=== PATIENT | female | born 1960 | race Caucasian/White ===

== ENCOUNTER → 2020-06-13 13:40 | Outpatient (BNV) | payer MEDICARE, MEDICAID, SELFPAY | PROVIDERS: PCP Family Medicine; Visit Provider Internal Medicine Medical Oncology | DX: C50.912 Malignant neoplasm of unspecified site of left female breast (principal); C50.911 Malignant neoplasm of unspecified site of right female breast; Z79.811 Long term (current) use of aromatase inhibitors; M81.0 Age-related osteoporosis without current pathological fracture; D64.9 Anemia, unspecified | CPT/HCPCS: 99213; 99214 ==

== ENCOUNTER 2020-12-01 08:26 | Day surgery (SDC) | payer MEDICAID, SELFPAY ==
[2020-11-27 10:02] VITALS: BMI 29.2
--- NOTE | 2020-11-29 15:05 | HO.ANESPROP2 ---
Documented by User: Carla Ramsay 11/30/20 12:20 HPI - Anesthesia Eval Consult details Narrative: 60yo F for Colonoscopy PMFSH Active Problems Active Problems: All Active Problems (Updated 06/13/20 @ 13:24 by Melody Pham MD) Bilateral breast cancer (Acute) Past Medical History Medical History Allergic rhinitis Anxiety and depression GERD (gastroesophageal reflux disease) HLD (hyperlipidemia) HTN (hypertension) Hx of radiation therapy Invasive carcinoma of breast Surgical History Surgical History Hx of lumpectomy Social History Social History Alcohol intake: former Meds Allergies Allergy/AdvReac Type Severity Reaction Status Date / Time chlorthalidone Allergy Unknown UNKNOWN Unverified 01/27/20 15:16 [CHLORTHALIDONE] omeprazole [From Prilosec] Allergy Unknown TONGUE Unverified 01/27/20 15:16 NUMBNESS Home Medications Medication Instructions Recorded Confirmed Last Taken Type albuterol sulfate [ProAir HFA] 2 puff INHALATION Q4-6H PRN 06/13/20 06/13/20 Unknown History alendronate 5 mg PO DAILY 06/13/20 06/13/20 Unknown History clonazepam 1 mg PO BID 06/13/20 06/13/20 Unknown History latanoprost 1 drp OPHTHALMIC (EYE) DAILY 06/13/20 06/13/20 Unknown History lisinopril 10 mg PO DAILY 06/13/20 06/13/20 Unknown History loratadine 10 mg PO DAILY 06/13/20 06/13/20 Unknown History montelukast 10 mg PO BEDTIME 06/13/20 06/13/20 Unknown History ranitidine HCl 150 mg PO DAILY 06/13/20 06/13/20 Unknown History sertraline 100 mg PO DAILY 06/13/20 06/13/20 Unknown History simvastatin 10 mg PO BEDTIME 06/13/20 06/13/20 Unknown History trazodone 50 mg PO BEDTIME PRN 06/13/20 06/13/20 Unknown History Exam Exam Date and Time: November 29, 2020 1505 Height,Weight and Vital Signs: Height 5 ft Weight 68.039 kg Assessment and Plan Assessment Anesthesia Assessment: Chart Reviewed Documented by User: Shannon Medina 12/01/20 07:41 PMFSH Past Medical History Medical History Allergic rhinitis Anxiety and depression GERD (gastroesophageal reflux disease) HLD (hyperlipidemia) HTN (hypertension) Hx of radiation therapy Invasive carcinoma of breast Surgical History Surgical History Hx of lumpectomy Social History Social History Alcohol intake: former Meds Allergies Allergy/AdvReac Type Severity Reaction Status Date / Time chlorthalidone Allergy Unknown UNKNOWN Unverified 01/27/20 15:16 [CHLORTHALIDONE] omeprazole [From Prilosec] Allergy Unknown TONGUE Unverified 01/27/20 15:16 NUMBNESS Home Medications Medication Instructions Recorded Confirmed Last Taken Type albuterol sulfate [ProAir HFA] 2 puff INHALATION Q4-6H PRN 06/13/20 06/13/20 Unknown History alendronate 5 mg PO DAILY 06/13/20 06/13/20 Unknown History clonazepam 1 mg PO BID 06/13/20 06/13/20 Unknown History latanoprost 1 drp OPHTHALMIC (EYE) DAILY 06/13/20 06/13/20 Unknown History lisinopril 10 mg PO DAILY 06/13/20 06/13/20 Unknown History loratadine 10 mg PO DAILY 06/13/20 06/13/20 Unknown History montelukast 10 mg PO BEDTIME 06/13/20 06/13/20 Unknown History ranitidine HCl 150 mg PO DAILY 06/13/20 06/13/20 Unknown History sertraline 100 mg PO DAILY 06/13/20 06/13/20 Unknown History simvastatin 10 mg PO BEDTIME 06/13/20 06/13/20 Unknown History trazodone 50 mg PO BEDTIME PRN 06/13/20 06/13/20 Unknown History
[2020-12-01 08:46] VITALS: BP 149/55; PULSE 94; RESP 18; TEMP 36.3; O2SAT 99
[2020-12-01] MEDS: Lactated Ringers 1,000 ML 100 ML IVCONT (08:54)
--- NOTE | 2020-12-01 09:34 | P.BOP_ITS ---
Brief Operative Note Date of Service: 12/01/20 Pre-op diagnosis: screening Post-op diagnosis: same (colon polyp) Procedure: colonoscopy Surgeon: Bay Sampson Anesthesia: MAC Was an Summer Internship used for this Procedure?: No Estimated blood loss (mL): 2 Pathology: other (polyp x1) Condition: stable Disposition: PACU
--- NOTE | 2020-12-01 09:34 | MHC.SHP ---
Pre-Procedural Eval Section A Date of Service: 12/01/20 The patient is an INPATIENT: No Changes since office visit: No Cold of Flu in the past 2 weeks, No New Medical Problems, No Changes in Medication and No Patient answered all questions The History & Physical has been completed within 30 days and I have reviewed it.: Yes Section B Chief Complaint: Screening Allergies: Allergies Allergy/AdvReac Type Severity Reaction Status Date / Time chlorthalidone Allergy Unknown UNKNOWN Verified 12/01/20 08:41 [CHLORTHALIDONE] omeprazole [From Prilosec] Allergy Unknown TONGUE Verified 12/01/20 08:41 NUMBNESS Plan I have reviewed the history and physical and performed a pertinent physical examination on my patient. No changes have occurred unless specified.
[2020-12-01 10:05] VITALS: BP 103/52; PULSE 75; RESP 12; TEMP 37.3; O2SAT 99
[2020-12-01 10:19] VITALS: BP 96/70; PULSE 87; RESP 18; O2SAT 99
[2020-12-01 10:36] VITALS: BP 130/64; PULSE 75; RESP 16; TEMP 37.3; O2SAT 99
--- NOTE | 2020-12-01 11:20 | HO.POSTANES ---
Post Anesthesia Evaluation Post Anesthesia Evaluation Vital Signs: Vital Signs Temp Pulse Resp BP Pulse Ox 12/01/20 10:36 99.2 F 75 16 130/64 99 12/01/20 10:19 87 18 96/70 99 12/01/20 10:05 99.2 F 75 12 103/52 L 99 12/01/20 08:46 97.4 F 94 18 149/55 H 99 Anesthesia: Monitored Mental Status: Awake Pain Control: Satisfactory Nausea/Vomiting: None Hydration: Adequate Anesthesia-Related Issues: No Anes. Related Issues
--- NOTE | 2020-12-01 20:47 | OP_ITS ---
SURGEON: Bay Sampson MD INDICATIONS: Colon cancer screening. PREOPERATIVE DIAGNOSIS: POSTOPERATIVE DIAGNOSIS: PROCEDURE PERFORMED: Colonoscopy to the terminal ileum with biopsy. ESTIMATED BLOOD LOSS: COMPLICATIONS: ANESTHESIA: Monitored anesthesia care. ASSISTANTS: SPECIMENS: DESCRIPTION OF PROCEDURE: History and physical performed. The risks and benefits of the procedure were explained to the patient. Informed consent was obtained. The patient was placed in the left lateral decubitus position. A digital rectal exam was performed and was found to be normal. An Olympus pediatric video colonoscope was introduced into the rectum and advanced to the cecum without difficulty. The cecum was identified by transillumination, palpation, and identification of ileocecal valve. Examination was performed. The scope was removed. She tolerated the procedure well and was taken to recovery area in stable condition. FINDINGS: The terminal ileum was examined and appeared normal. The visualized colonic mucosa was within normal limits without evidence of masses or ulcers. A single polyp measuring less than 5 mm was identified and removed with biopsy forceps at approximately 70 cm. No other polyps were identified. The quality of the prep was good. There was mild sigmoid diverticulosis. Retroflexed examination showed small internal hemorrhoids. IMPRESSION: Colon polyp. RECOMMENDATIONS: Follow up the biopsy results. MD KP Niño/MELCHOR / [id number]
== END 2020-12-01 11:05 | disposition home or self-care (01) ==
PROVIDERS: PCP Family Medicine; Visit Provider Internal Medicine Gastroenterology
PROC: 0DJD8ZZ Inspection of Lower Intestinal Tract, Via Natural or Artificial Opening Endoscopic (ICD-10-PCS; CPT 45378; principal; 2020-12-01 09:40)
DX: Z12.11 Encounter for screening for malignant neoplasm of colon (principal); K63.5 Polyp of colon; K57.30 Diverticulosis of large intestine without perforation or abscess without bleeding; K64.8 Other hemorrhoids; K21.9 Gastro-esophageal reflux disease without esophagitis; C50.919 Malignant neoplasm of unspecified site of unspecified female breast; Z79.811 Long term (current) use of aromatase inhibitors; I10 Essential (primary) hypertension; Z92.3 Personal history of irradiation; Z79.899 Other long term (current) drug therapy; Z88.8 Allergy status to other drugs, medicaments and biological substances
CPT/HCPCS: 45380; 88305

== ENCOUNTER 2021-03-06 14:45 | Outpatient (REF) | payer MEDICAID, SELFPAY ==
--- NOTE | ~2021-03-06 | MM_ITS ---
EXAMINATION: MM SCREENING DIGITAL BREAST TOMOSYNTHESIS, RIGHT CLINICAL INFORMATION: Screening. Asymptomatic. Status post left mastectomy. 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 COMPARISON: Mammography: January 27, 2020 and studies dating back to August 08, 2011 TECHNIQUE: Digital breast tomosynthesis is performed in both the craniocaudal and mediolateral oblique views along with computer-aided detection (CAD). Synthesized 2D images are generated from the tomosynthesis. Exaggerated right craniocaudal view also performed. FINDINGS: The breasts are heterogeneously dense, which may obscure small masses (ACR BI-RADS breast composition Category c). There is a stable postoperative in postradiation appearance to the right breast with no new abnormal dominant mass or suspicious grouping of microcalcifications. MM/MM tomosynthesis screening BI IMPRESSION: There are no significant changes from prior study. ASSESSMENT: BI-RADS 2: Benign RECOMMENDATION: Routine annual mammography screening. This patient's information was entered into a reminder system with a target due date for their next mammogram.
== END 2021-03-06 14:46 | disposition home or self-care (01) ==
LOC: HO.MAMMO 14:45
PROVIDERS: Visit Provider Family Medicine
DX: Z12.31 Encounter for screening mammogram for malignant neoplasm of breast (principal)
CPT/HCPCS: 77063; 77067

== ENCOUNTER 2021-05-17 13:10 | Outpatient (REF) | payer MEDICAID, SELFPAY ==
[2021-05-22 16:01] LABS: HPV mRNA E6/E7 rflx Not Detected (Not Detected)
== END 2021-05-17 13:11 | disposition home or self-care (01) ==
LOC: HO.LAB 13:10
PROVIDERS: PCP Family Medicine; Visit Provider Obstetrics & Gynecology
DX: N95.0 Postmenopausal bleeding (principal); N95.2 Postmenopausal atrophic vaginitis
CPT/HCPCS: 87624; 88142; 99212

== ENCOUNTER 2021-06-12 12:45 | Outpatient (REF) | payer MEDICAID, SELFPAY ==
--- NOTE | ~2021-06-12 | XR_ITS ---
EXAMINATION: XR CHEST CLINICAL INFORMATION: Left lung congestion and pain. History of breast cancer. COMPARISON: Previous chest x-ray June 2018 TECHNIQUE: 2 views of the chest were obtained. FINDINGS: The cardiac and mediastinal contours are normal. The lungs are clear. There is no pleural effusion or pneumothorax. The left breast has been removed. There are surgical clips in both axilla. There are degenerative changes of the spine. XR/XR chest 2V IMPRESSION: No evidence for acute disease in the chest.
== END 2021-06-12 12:46 | disposition home or self-care (01) ==
LOC: HO.XRAY 12:45
PROVIDERS: PCP Family Medicine; Visit Provider Family Medicine
DX: C50.912 Malignant neoplasm of unspecified site of left female breast (principal); R09.89 Other specified symptoms and signs involving the circulatory and respiratory systems
CPT/HCPCS: 71046

== ENCOUNTER 2021-07-09 13:46 | Outpatient (REF) | payer MEDICAID, SELFPAY ==
--- NOTE | ~2021-07-09 | US_ITS ---
EXAMINATION: US PELVIC AND TRANSVAGINAL CLINICAL INFORMATION: Postmenopausal bleeding. COMPARISON: Ultrasound 10/29/2018 and 11/05/2016. TECHNIQUE: Ultrasound of the pelvis is performed using both transabdominal and transvaginal transducers along with Doppler. Transvaginal imaging is performed due to inadequate visualization transabdominally. FINDINGS: UTERUS: The uterus is anteverted, and measures 8.8 x 3.5 x 6.9 cm. The double wall endometrial thickness is 0.2-0.5 cm. There are echogenic calcifications in the myometrium likely vascular. Previously visualized polyp is not seen at this time likely from previous biopsy. The uterus is smooth in contour and has normal myometrial echogenicity. No visible fibroid. There are small nabothian cysts seen in the cervix. ADNEXA: Both ovaries are not visualized. There is normal color flow to the adnexa. There is no ovarian torsion. There is no pelvic ascites or fluid collection. Right ovary previously measured 0.8 x 1.0 x 1.4 and volume 0.6 mL. Left ovary previously measured 1.3 x 1.1 x 1.8 cm and volume 1.3 mL. There is no free fluid in the cul-de-sac. US/US pelvic and transvaginal IMPRESSION: 1. Nabothian cysts in the cervix. 2. Echogenic vascular calcification in the myometrium. Endometrial polyp is not seen at this time likely secondary to biopsy. 3. Both ovaries are not seen.
== END 2021-07-09 13:47 | disposition home or self-care (01) ==
LOC: HO.US 13:46
PROVIDERS: PCP Family Medicine; Visit Provider Obstetrics & Gynecology
DX: N95.0 Postmenopausal bleeding (principal)
CPT/HCPCS: 76830; 76856

== ENCOUNTER 2021-07-23 13:51 | Outpatient (REF) | payer MEDICAID, SELFPAY | END 2021-07-23 13:52 | disposition home or self-care (01) | LOC: HO.LAB 13:51 | PROVIDERS: PCP Family Medicine; Visit Provider Obstetrics & Gynecology | DX: N95.0 Postmenopausal bleeding (principal); N95.2 Postmenopausal atrophic vaginitis | CPT/HCPCS: 58100; 88305; 99212 ==

== ENCOUNTER → 2021-08-06 12:28 | Outpatient (BNVA) | payer MEDICAID, SELFPAY | PROVIDERS: PCP Family Medicine; Visit Provider Obstetrics & Gynecology | DX: Z13.89 Encounter for screening for other disorder (principal) ==

== ENCOUNTER 2022-03-07 14:37 | Outpatient (REF) | payer MEDICAID, SELFPAY ==
--- NOTE | ~2022-03-07 | MM_ITS ---
EXAMINATION: MM SCREENING DIGITAL BREAST TOMOSYNTHESIS, RIGHT CLINICAL INFORMATION: Screening. Asymptomatic. Status post left mastectomy. Status post right lumpectomy. COMPARISON: Mammography: March 06, 2021 and studies dating back to September 04, 2015 TECHNIQUE: Digital breast tomosynthesis is performed in both the craniocaudal and mediolateral oblique views along with computer-aided detection (CAD). Synthesized 2D images are generated from the tomosynthesis. FINDINGS: The breasts are heterogeneously dense, which may obscure small masses (ACR BI-RADS breast composition Category c). There are no new significant masses, abnormal calcifications, or other abnormalities. Regions of architectural distortion from previous surgery seen upper outer aspect of the right breast. MM/MM tomosynthesis screening RT IMPRESSION: No significant changes from prior exam. ASSESSMENT: BI-RADS 2: Benign RECOMMENDATION: Routine annual mammography screening. This patient's information was entered into a reminder system with a target due date for their next mammogram.
== END 2022-03-07 14:38 | disposition home or self-care (01) ==
LOC: HO.MAMMO 14:37
PROVIDERS: PCP Family Medicine; Visit Provider Family Medicine
DX: Z12.31 Encounter for screening mammogram for malignant neoplasm of breast (principal)
CPT/HCPCS: 77063; 77067

== ENCOUNTER 2022-11-14 08:31 | Outpatient (REF) | payer MEDICAID, SELFPAY | END 2022-11-14 08:32 | disposition home or self-care (01) | LOC: HO.NEURO 08:31 | PROVIDERS: PCP Family Medicine; Visit Provider Family Medicine | DX: G25.81 Restless legs syndrome (principal) | CPT/HCPCS: 95886; 95909 ==

== ENCOUNTER 2023-03-11 13:44 | Outpatient (REF) | payer MEDICARE, MEDICAID, SELFPAY ==
--- NOTE | ~2023-03-11 | MM_ITS ---
EXAMINATION: MM SCREENING DIGITAL BREAST TOMOSYNTHESIS, BILATERAL CLINICAL INFORMATION: Screening. Asymptomatic. Status post left mastectomy and right lumpectomy for breast cancer. COMPARISON: Mammography: This study is compared with prior exams dating back to 2018. TECHNIQUE: Digital breast tomosynthesis is performed in both the craniocaudal and mediolateral oblique views along with computer-aided detection (CAD). Synthesized 2D images are generated from the tomosynthesis. FINDINGS: There are scattered areas of fibroglandular density (ACR BI-RADS breast composition Category b). There are no significant masses, abnormal calcifications, or other abnormalities. There are biopsy tissue markers in the upper outer quadrant of the right breast, medial aspect of the right breast and in the right axilla. There are 2 adjacent areas of architectural change from prior surgery in the upper outer quadrant of the right breast. There is inferiorly located, mildly, unchanged skin thickening from prior treatment. MM/MM tomosynthesis screening RT IMPRESSION: No mammographic evidence of malignancy. ASSESSMENT: BI-RADS BI-RADS 2 - Benign Findings RECOMMENDATION: Routine annual mammography screening. 1 year F/U This examination should not preclude the clinical evaluation of a suspicious palpable abnormality. This patient's information was entered into a reminder system with a target due date for their next mammogram.
--- NOTE | ~2023-03-11 | MM_ITS ---
EXAMINATION: BONE DENSITOMETRY CLINICAL INDICATION: Other specified disorders of bone density and structure, multiple sites. COMPARISON: Previous BD dated 01/27/2020 and baseline BD dated 01/18/2008. TECHNIQUE: Using a [employer]ji DXA System (software version: 13.1) manufactured by [employer], dual-energy x-ray absorptiometry was performed of the lumbar spine and left hip. The images are of good technical quality. Summary results are attached. FINDINGS: LEFT FEMUR, NECK: Current: BMD 0.741 g/cm2, Z-score -0.7, T-score -2.1, osteopenia. Prior: BMD 0.798 g/cm2. Baseline: BMD 0.902 g/cm2. LEFT FEMUR, TOTAL: Current: BMD 0.743 g/cm2, Z-score -1.0, T-score -2.1, osteopenia, 5.1% decrease from previous, 17.1% decrease from baseline (<5% change is not significant). Prior: BMD 0.783 g/cm2. Baseline: BMD 0.896 g/cm2. AP SPINE L1-L4: Current: BMD 0.877 g/cm2, Z-score -1.0, T-score -2.5, osteoporosis, 0.8% decrease from previous, 19.1% decrease from baseline (<5% change is not significant). Prior: BMD 0.884 g/cm2. Baseline: BMD 1.084 g/cm2. IDENTIFIED RISK FACTORS: Menopause. HISTORY OF FRACTURE: None listed. MEDICATIONS: Bisphosphonate. MM/XR DEXA axial skeleton IMPRESSION: 1. DIAGNOSIS: Osteoporosis based on the lowest T-score value of -2.5 in the lumbar spine applying World Health Organization criteria. 2. 10-YEAR FRACTURE RISK PREDICTION, FRAX: According to the guidelines, FRAX calculation should only be performed on patients in the osteopenia bone density category. Therefore, FRAX was not performed on this patient. 3. Treatment Recommendations: NOF guidelines recommend consideration for treatment in postmenopausal women and men age 50 and older presenting with the following: -A hip or vertebral (clinical or morphometric) fracture. -T-score less than or equal to -2.5 at the femoral neck or spine after appropriate evaluation to exclude secondary causes. -Low bone mass at the hip or spine and a 10-year fracture probability by FRAX of greater than or equal to 3% for hip fracture or greater than or equal to 20% for major osteoporotic fracture based on the [place] adapted WHO algorithm. 4. Other Recommendations: All treatment decisions require clinical judgment and consideration of individual patient factors, including patient preferences, comorbidities, previous drug use, risk factors not captured in the FRAX model (e.g. frailty, falls, vitamin D deficiency, increased bone turnover, interval significant decline in bone density) and possible under or overestimation of fracture risk by FRAX. Additional medical evaluation for secondary cause of low bone mineral density may be appropriate. FUTURE SCAN RECOMMENDATION: People with diagnosed cases of osteoporosis or at high risk for fracture should have regular bone mineral density tests. For patients eligible for Medicare, routine testing is allowed once every 2 years. The testing frequency can be increased to one year for patients who have rapidly progressing disease, those who are receiving or discontinuing medical therapy to restore bone mass, or have additional risk factors.
== END 2023-03-11 13:45 | disposition home or self-care (01) ==
LOC: HO.MAMMO 13:44
PROVIDERS: PCP Family Medicine; Visit Provider Family Medicine
DX: Z12.31 Encounter for screening mammogram for malignant neoplasm of breast (principal); Z13.820 Encounter for screening for osteoporosis; M85.89 Other specified disorders of bone density and structure, multiple sites; Z78.0 Asymptomatic menopausal state
CPT/HCPCS: 77063; 77067; 77080

== ENCOUNTER → 2023-03-11 14:30 | Outpatient (BNV) | payer MEDICARE, MEDICAID, SELFPAY | PROVIDERS: PCP Family Medicine; Visit Provider Radiology Diagnostic Radiology | DX: Z12.31 Encounter for screening mammogram for malignant neoplasm of breast (principal) | CPT/HCPCS: 77063; 77067 ==

== ENCOUNTER 2023-05-06 12:46 | Outpatient (REF) | payer MEDICARE, MEDICAID, SELFPAY ==
[2023-05-06 16:42] LABS: Alanine Aminotransferase 9 U/L (0-31); Albumin Level 4.2 g/dL (3.5-5.0); Alkaline Phosphatase 73 U/L (39-117); Anion Gap 13 (12-20); Aspartate Amino Transferase 19 U/L (5-31); Bilirubin Total 0.5 mg/dL (0.0-1.0); Blood Urea Nitrogen 15 mg/dL (9-16); Calcium 9.7 mg/dL (8.4-10.2); Carbon Dioxide 24 mmol/L (22-29); Chloride 107 mmol/L (96-108); Estimated Glomerular Filt Rate > 60; Glucose Random 92 mg/dL (60-115); Potassium 4.4 mmol/L (3.3-5.1); Sodium 140 mmol/L (135-145); Total Protein 8.2 g/dL (6.5-8.0)
[2023-05-06 16:43] LABS: Cholesterol 198 mg/dL (<200); HDL Cholesterol 51 mg/dL (>40); LDL Cholesterol Calculated 116 mg/dL (<100); Triglycerides 157 mg/dL (<150)
[2023-05-06 16:45] LABS: Estimated Average Glucose 117 mg/dL; Hemoglobin A1c % 5.7 % (<6.0)
[2023-05-06 17:35] LABS: Reflex LDLD? No
== END 2023-05-06 12:47 | disposition home or self-care (01) ==
LOC: HO.HHCL 12:46
PROVIDERS: Visit Provider Family Medicine
DX: E78.5 Hyperlipidemia, unspecified (principal); I10 Essential (primary) hypertension; R73.01 Impaired fasting glucose
CPT/HCPCS: 36415; 80053; 80061; 83036

== ENCOUNTER 2023-12-09 18:04 | Outpatient (REF) | payer MEDICARE, MEDICAID, SELFPAY ==
[2023-12-10 05:54] LABS: CT PCR NOT DETECTED (Not Detect.); NG PCR NOT DETECTED (Not Detect.)
[2023-12-10 08:53] LABS: Bacterial Vaginosis PCR NEGATIVE (Negative); Candida Group PCR NOT DETECTED (Not Detect); Candida glab krusei PCR NOT DETECTED (Not Detect); Trichomonas vaginalis PCR NOT DETECTED (Not Detect)
== END 2023-12-09 18:05 | disposition home or self-care (01) ==
LOC: HO.HHCLNP 18:04
PROVIDERS: Visit Provider Nurse Practitioner Family
DX: R39.9 Unspecified symptoms and signs involving the genitourinary system (principal); Z11.3 Encounter for screening for infections with a predominantly sexual mode of transmission
CPT/HCPCS: 0352U; 87491; 87591

== ENCOUNTER 2024-04-21 14:03 | Outpatient (AMB) | payer MEDICARE, MEDICAID, SELFPAY ==
--- NOTE | 2024-04-21 14:07 | A.OFFVIS_ITS ---
Vital Signs 04/21/24 14:12 Height 5 ft 0.35 in Weight 157 lb 6.561 oz BMI 30.4 BP 138/70 Blood Pressure Location Rt brachial Position Sitting Pulse 103 H Pulse Source Pulse Oximeter Intake Visit Reasons: Osteoporosis Intake Note: New patient present for Osteoporosis, externally referred by PCP. Territory Supervisor Required: Yes Territory Supervisor Services: Territory Supervisor Present Territory Supervisor Name: Ney Information Interpreted: non-clinical & clinical Accompanied by: Self / Same As Patient Allergies chlorthalidone [CHLORTHALIDONE] Allergy (Unknown, Verified 04/21/24 14:13) UNKNOWN omeprazole [From Prilosec] Allergy (Unknown, Verified 04/21/24 14:13) TONGUE NUMBNESS HPI Comments Details: 64 YO Female is seen in consultation at the request of PCP for Osteoporosis. First diagnosed in many yrs ago .Never saw specialist before Received treatment in the past with alendronate , from 2018 to 2023 . Tolerated treatment well without complication. Currently on alendronate No history of pathologic fracture or ONJ. Has several servings of dietary calcium per day . Not Takes Calcium supplement mg daily in divided doses. Takes ?1200 IU of Vitamin D daily. Denies ever using PPI, anticoagulant, antiepileptic or glucocorticoid medication. 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 UTD on dental cleanings and sees dentist every 6 months. No planned upcoming dental work or extractions. DXA dated 03/11/23:FINDINGS: LEFT FEMUR, NECK: Current: BMD 0.741 g/cm2, Z-score -0.7, T-score -2.1, osteopenia. Prior: BMD 0.798 g/cm2. Baseline: BMD 0.902 g/cm2. LEFT FEMUR, TOTAL: Current: BMD 0.743 g/cm2, Z-score -1.0, T-score -2.1, osteopenia, 5.1% decrease from previous, 17.1% decrease from baseline (<5% change is not significant). Prior: BMD 0.783 g/cm2. Baseline: BMD 0.896 g/cm2. AP SPINE L1-L4: Current: BMD 0.877 g/cm2, Z-score -1.0, T-score -2.5, osteoporosis, 0.8% decrease from previous, 19.1% decrease from baseline (<5% change is not significant). Prior: BMD 0.884 g/cm2. Baseline: BMD 1.084 g/cm2. IDENTIFIED RISK FACTORS: Menopause. HISTORY OF FRACTURE: None listed. MEDICATIONS: Bisphosphonate. MM/XR DEXA axial skeleton IMPRESSION: 1. DIAGNOSIS: Osteoporosis based on the lowest T-score value of -2.5 in the lumbar spine applying World Health Organization criteria. Labs: [facility] Medical History Vertigo Allergic rhinitis HLD (hyperlipidemia) GERD (gastroesophageal reflux disease) HTN (hypertension) Anxiety and depression Hx of radiation therapy Invasive carcinoma of breast Surgical History History of cataract surgery Hx of lumpectomy Family History Other No family history of cancer Social History Household Members: Spouse Housing: House Are you a primary healthcare insurance sales agent to a significant other at home: No Do you presently have visiting nurse or other home services: No Alcohol intake: former Patient Tobacco Use Status: Never used Tobacco Second Hand Smoke Exposure: No service: No Current occupational status: disabled Female Reproductive History Menstrual Age of Menarche: 8 Physical Exam Vital Signs: Last Vital Signs Pulse 103 H 04/21/24 14:12 BP 138/70 04/21/24 14:12 BMI result Body Mass Index 30.4 There are no Cushingoid features. Absence of blue sclera. Absence of kyphosis. Thyroid gland is of nl size and weighs 15 gms. There are no thyroid nodules palpated. Lungs CTA. Heart S1 S2 Reg R/R Abdominal exam benign. Muscle strength 5/5 . Examination of spine reveals absence of tenderness on palpation Assessment & Plan Assessment & Plan (1) Osteoporosis: Code(s): M81.0 - Age-related osteoporosis without current pathological fracture Category: Medical Plan: This is a 64-year-old female with a history of osteoporosis with partial secondary workup. She completed 5 years of bisphosphonate therapy with bone density showing borderline osteoporosis Plan is to complete the secondary workup by checking TSH, free T4, 25 hydroxy vitamin-D, SPEP, urine immunofixation and 24 hour urine for calcium and creatinine. Will ensure 1200 mg of calcium and vitamin-D supplementation. We will also check urine NTX. Assuming urine NTX is suppressed, would consider giving a drug holiday by holding the alendronate and following bone turnover markers. Orders: Orders Free T4 (Free Thyroxine) Today M81.0 - Age-related osteoporosis without current pathological fracture Calcium, 24 Hr Ur Today M81.0 - Age-related osteoporosis without current pathological fracture Creatinine, 24 Hr Group Today M81.0 - Age-related osteoporosis without current pathological fracture Collagen Crosslinks NTX Today M81.0 - Age-related osteoporosis without current pathological fracture Vitamin D 25-OH Total Today M81.0 - Age-related osteoporosis without current pathological fracture Thyroid Stimulating Hormone Today M81.0 - Age-related osteoporosis without current pathological fracture Protein Electrophoresis, Serum Today M81.0 - Age-related osteoporosis without current pathological fracture Immunofixation, Random Urine Today M81.0 - Age-related osteoporosis without current pathological fracture Coding Level of Care Code New Pt Level 4 (16663) Diagnoses Osteoporosis M81.0
[2024-04-21 14:12] VITALS: BP 138/70; PULSE 103; BMI 30.4
== END 2024-04-21 14:39 | disposition home or self-care (01) ==
PROVIDERS: PCP Family Medicine; Visit Provider Internal Medicine Endocrinology, Diabetes & Metabolism
DX: M81.0 Age-related osteoporosis without current pathological fracture (principal)
CPT/HCPCS: 99204

== ENCOUNTER → 2024-04-21 14:03 | Outpatient (BNVA) | payer MEDICARE, MEDICAID, SELFPAY | PROVIDERS: PCP Family Medicine; Visit Provider Internal Medicine Endocrinology, Diabetes & Metabolism | DX: M81.0 Age-related osteoporosis without current pathological fracture (principal) | CPT/HCPCS: 99202 ==

== ENCOUNTER 2024-05-25 13:50 | Outpatient (REF) | payer MEDICARE, MEDICAID, SELFPAY | END 2024-05-25 13:51 | disposition home or self-care (01) | LOC: HO.MAMMO 13:50 | PROVIDERS: PCP Family Medicine; Visit Provider Family Medicine | DX: Z12.31 Encounter for screening mammogram for malignant neoplasm of breast (principal) | CPT/HCPCS: 77063; 77067 ==

== ENCOUNTER → 2024-05-25 14:00 | Outpatient (BNV) | payer MEDICARE, MEDICAID, SELFPAY | PROVIDERS: PCP Family Medicine; Visit Provider Internal Medicine | DX: Z12.31 Encounter for screening mammogram for malignant neoplasm of breast (principal) | CPT/HCPCS: 77063; 77067 ==

== ENCOUNTER 2024-07-28 13:38 | Outpatient (REF) | payer MEDICARE, SELFPAY ==
[2024-07-28 14:43] LABS: Estimated Average Glucose 120 mg/dL; Hemoglobin A1c % 5.8 % (<6.0)
[2024-07-28 15:28] LABS: Creatinine, mg/dL 53.84
[2024-07-28 17:30] LABS: Alanine Aminotransferase 15 U/L (0-31); Albumin Level 4.4 g/dL (3.5-5.0); Alkaline Phosphatase 60 U/L (39-117); Anion Gap 11 (12-20); Aspartate Amino Transferase 17 U/L (5-31); Bilirubin Total 0.3 mg/dL (0.0-1.0); Blood Urea Nitrogen 16 mg/dL (9-16); Calcium 9.7 mg/dL (8.4-10.2); Carbon Dioxide 27 mmol/L (22-29); Chloride 105 mmol/L (96-108); Cholesterol 185 mg/dL (<200); Estimated Glomerular Filt Rate > 60; Glucose Random 77 mg/dL (60-115); HDL Cholesterol 60 mg/dL (>40); LDL Cholesterol Calculated 82 mg/dL (<100); Sodium 139 mmol/L (135-145); Total Protein 8.6 g/dL (6.5-8.0); Triglycerides 215 mg/dL (<150)
[2024-07-28 19:39] LABS: Reflex LDLD? No
[2024-07-28 20:58] LABS: Creatinine, 24Hr Urine 0.9 G/Day (1.0-2.0); Total Volume 24 Hour Urine 1650 mL
[2024-08-04 08:12] LABS: Calcium, 24 Hr Urine 142 mg/24 h; Calcium/Creatinine Ratio 162 mg/g creat (30-275); Creatinine 24Hr Urine 0.87 g/24 h (0.50-2.15)
== END 2024-07-28 13:39 | disposition home or self-care (01) ==
LOC: HO.LAB 13:38
PROVIDERS: PCP Family Medicine; Visit Provider Internal Medicine Endocrinology, Diabetes & Metabolism
DX: I10 Essential (primary) hypertension (principal); R73.01 Impaired fasting glucose; M81.0 Age-related osteoporosis without current pathological fracture
CPT/HCPCS: 36415; 80053; 80061; 82340; 82570; 83036

== ENCOUNTER 2024-08-04 13:00 | Outpatient (AMB) | payer MEDICARE, MEDICAID, SELFPAY ==
--- NOTE | 2024-08-04 13:14 | A.OFFVIS_ITS ---
Vital Signs 08/04/24 13:17 Height 5 ft 0.55 in Weight 168 lb 13.985 oz BMI 32.4 BP 112/56 L Blood Pressure Location Rt brachial Position Sitting Pulse 93 Pulse Source Pulse Oximeter Pulse Oximetry (%) 98 Oxygen Delivery Method Room Air Intake Visit Reasons: Osteoporosis f/u Intake Note: Patient present today for Osteoporosis follow up. Acetone Button Paster Required: Yes Acetone Button Paster Language: Director Of Sports Performance Services: Acetone Button Paster Present Acetone Button Paster Name: Ellis [id number] Information Interpreted: non-clinical & clinical Accompanied by: Self / Same As Patient Allergies chlorthalidone [CHLORTHALIDONE] Allergy (Unknown, Verified 08/04/24 13:18) UNKNOWN omeprazole [From Prilosec] Allergy (Unknown, Verified 08/04/24 13:18) TONGUE NUMBNESS HPI Comments Details: 64 YO Female is seen in consultation at the request of PCP for Osteoporosis. First diagnosed in many yrs ago .Never saw specialist before Received treatment in the past with alendronate , from 2018 to 2023 . Tolerated treatment well without complication. Currently on alendronate No history of pathologic fracture or ONJ. Has several servings of dietary calcium per day . Not Takes Calcium supplement mg daily in divided doses. Takes ?1200 IU of Vitamin D daily. Denies ever using PPI, anticoagulant, antiepileptic or glucocorticoid medication. Not Does weight bearing exercise Fracture history: No Height loss: No FOOD PREPARER history: Menarche at ag10 - menopause at age 38 s during chemotherapy - nl menses Denies history of Kidney stones: family history of Osteoporosis in sister but no hip fracture. UTD on dental cleanings and sees dentist every 6 months. No planned upcoming dental work or extractions. DXA dated 03/11/23:FINDINGS: LEFT FEMUR, NECK: Current: BMD 0.741 g/cm2, Z-score -0.7, T-score -2.1, osteopenia. Prior: BMD 0.798 g/cm2. Baseline: BMD 0.902 g/cm2. LEFT FEMUR, TOTAL: Current: BMD 0.743 g/cm2, Z-score -1.0, T-score -2.1, osteopenia, 5.1% decrease from previous, 17.1% decrease from baseline (<5% change is not significant). Prior: BMD 0.783 g/cm2. Baseline: BMD 0.896 g/cm2. AP SPINE L1-L4: Current: BMD 0.877 g/cm2, Z-score -1.0, T-score -2.5, osteoporosis, 0.8% decrease from previous, 19.1% decrease from baseline (<5% change is not significant). Prior: BMD 0.884 g/cm2. Baseline: BMD 1.084 g/cm2. IDENTIFIED RISK FACTORS: Menopause. HISTORY OF FRACTURE: None listed. MEDICATIONS: Bisphosphonate. MM/XR DEXA axial skeleton IMPRESSION: 1. DIAGNOSIS: Osteoporosis based on the lowest T-score value of -2.5 in the lumbar spine applying World Health Organization criteria. Labs: Did 24 hour urine collection for calcium which was normal but did not do rest of secondary workup. The patient is a 64-year-old female presenting with concerns regarding endocrine disorder evaluation. During a recent follow-up, the completed 24-hour urine collection showed normal results. Additional diagnostic tests, including blood work and a second urine test, are pending. The patient maintains adherence to calcium and vitamin D supplementation. She reports no new or worsening symptoms and denies recent fractures. [facility] Medical History Vertigo Allergic rhinitis HLD (hyperlipidemia) GERD (gastroesophageal reflux disease) HTN (hypertension) Anxiety and depression Hx of radiation therapy Invasive carcinoma of breast Surgical History History of cataract surgery Hx of lumpectomy Family History Other No family history of cancer Social History Household Members: Spouse Housing: House Are you a primary skin care specialist to a significant other at home: No Do you presently have visiting nurse or other home services: No Alcohol intake: former Patient Tobacco Use Status: Never used Tobacco Second Hand Smoke Exposure: No service: No Current occupational status: disabled Female Reproductive History Menstrual Age of Menarche: 8 Physical Exam Vital Signs: Last Vital Signs Pulse 93 08/04/24 13:17 BP 112/56 L 08/04/24 13:17 Pulse Ox 98 08/04/24 13:17 Oxygen Delivery Method Room Air 08/04/24 13:17 BMI result Body Mass Index 32.4 Assessment & Plan Assessment & Plan (1) Osteoporosis: Code(s): M81.0 - Age-related osteoporosis without current pathological fracture Category: Medical Plan: 1.osteoporosis evaluation: The endocrine disorder evaluation is ongoing with normal results from the 24-hour urine collection. Further diagnostic tests are pending including SPEP, urine immunofixation, phosphorus level, TSH and free T4 and essential for clarifying the diagnosis as well as urine NTX for guiding the treatment plan. The patient is instructed to complete blood work and a morning urine sample for reevaluation. Continuation of calcium and vitamin D supplements is indicated. The patient had an opportunity to ask questions regarding treatment plan. The patient expressed understanding and agreement with the above treatment plan. Patient was informed and verbally consented to the use of an ambient scribe for clinic note documentation during this visit. Coding Level of Care Code Est Pt Level 3 (02033) Diagnoses Osteoporosis M81.0
[2024-08-04 13:17] VITALS: BP 112/56; PULSE 93; O2SAT 98; BMI 32.4
--- OUTSIDE RECORDS SUMMARY | 2024-08-04 15:27 | XMS_ITS | Encounter Summary ---
Author Organization [employer] Address [address] [facility] [address] [place] [address] Care Team Providers Care Heavy Threader Name Role Phone Karina Rodarte MD Primary Care Provider [phone] Reason for Visit * Reason Comments Med Refill Encounter Details Date Type Department Care Team ([facility] st Contact Info) Description 02/23/2024 Refill [facility] MEDICINE [address] [place], [place] [phone] Karina Rodarte MD [address] [place], [place] [phone] Heartburn Social History Tobacco Use Types Packs/Day Years Used Date Smoking Tobacco: Never Passive Smoke Exposure: Never Smokeless Tobacco: Never Depression Answer Date Recorded Patient Health Questionnaire-9 Score 11 09/17/2022 Housing Stability Answer Date Recorded What is your housing situation today? I have dacia toth 02/26/[address] you li ve. Do you have problems with any of the following? None of the above 02/26/2023 Food Insecurity Answer Date Recorded Within the past 12 months, y ou worried that your food would run out before you got money to buy more: Never True 02/26/2023 Within the past 12 months,th e food you bought just didn't last and you didn't have enough money to get more: Never True Transportation Answer Date Recorded In the past 12 months, has l ack of transportation kept you from medical appts, meetings, work or from getting things needed for daily living? No 02/26/2023 Utilities Answer Date Recorded In the past 12 months, has t he electric, gas, oil or water company threatened to shut off services in your home? No 02/26/2023 Depression Answer Date Recorded Patient Health Questionnaire-2 Score 2 04/28/2023 Comments Unknown Sex and Gender Information Value Date Recorded Sex Assigned at Female 03/11/2022 10:14 AM EDT Legal Sex Female 10:14 AM EDT Gender Identity Female 03/11/2022 10:14 AM EDT Sexual Orientation Straight 03/11/2022 10 :14 AM EDT documented as of this encounter Plan of Treatment Upcoming Encounters Date Type Department Care Team (Late st Contact Info) Description 08/10/2024 2:30 PM EDT Clinical Support [facility] MEDICINE [address] [place] [address] documented as of this encounter Visit Diagnoses Diagnosis Heartburn documented in this encounter Additional Health Concerns Assessment Noted Time PHQ-9 Depression Total Score: 11 023 2:16 PM EDT documented as of this encounter Care Teams Heavy Threader Relationship Specialty Start Date End Date Karina Rodarte MD [address] [place] [address] PCP - General Family Medicine 05/12/18 documented as of this encounter
--- OUTSIDE RECORDS SUMMARY | 2024-08-04 15:28 | XMS_ITS | Encounter Summary ---
Author Organization [employer] Address [address] [facility] 7t [place] [address] Care Team Providers Care Emergency Medical Tech Name Role Phone Karina Rodarte MD Primary Care Provider [phone] Reason for Visit * Reason Onset Date Comments chart prep 07/15/2024 Encounter Details Date Type Department Care Team ([facility] st Contact Info) Description 07/15/2024 Telephone [facility] MEDICINE [address] [place], [place] [phone] Karina Rodarte MD [address] [place], [place] [phone] chart prep Social History Tobacco Use Types Packs/Day Years [...] AM EDT documented as of this encounter Miscellaneous Notes * Telephone Encounter - Abby Ayers [place] - 07/15/2024 2:39 PM EST .chart Prep Labs: not applicable Images: not applicable Vaccines due: Covid Due and Flu Due Referrals: Completed Screenings: Not Applicable Overdue care gaps: Sbirt, PHQ-9, Oral Health, and rand-7 documented in this encounter Plan of Treatment Upcoming Encounters Date Type Department Care Team (Late st Contact Info) Description 08/10/2024 2:30 PM EDT Clinical Support [facility] MEDICINE [address] [place] [address] documented as of this encounter Visit Diagnoses Not on filedocumented in this encounter Additional Health Concerns Assessment Noted Time PHQ-9 Depression Total Score: 11 023 2:16 PM EDT documented as of this encounter Care Teams Emergency Medical Tech Relationship Specialty Start Date End Date Karina Rodarte MD [address] [place] [address] PCP - General Family Medicine 05/12/18 documented as of this encounter
--- OUTSIDE RECORDS SUMMARY | 2024-08-04 15:28 | XMS_ITS | Encounter Summary ---
Author Organization [employer] Address [address] [facility] 7t [place] [address] Care Team Providers Care Identity Management Developer Name Role Phone Karina Rodarte MD Primary Care Provider [phone] Reason for Visit * Reason Comments Med Refill Encounter Details Date Type Department Care Team ([facility] st Contact Info) Description 07/06/2024 Refill [facility] MEDICINE [address] [place], [place] [phone] Karina Rodarte MD [address] [place], [place] [phone] Primary hypertension; Mild intermittent asthma without complication Social History Tobacco Use Types Packs/Day Years [...] Description 08/10/2024 2:30 PM EDT Clinical Support [facility] MEDICINE [address] [place] [address] documented as of this encounter Visit Diagnoses Diagnosis Primary hypertension Unspecified essential hypertension Mild intermittent asthma without complication documented in this encounter Additional Health Concerns Assessment Noted Time PHQ-9 Depression Total Score: 11 023 2:16 PM EDT documented as of this encounter Care Teams Identity Management Developer Relationship Specialty Start Date End Date Karina Rodarte MD [address] [place] [address] PCP - General Family Medicine 05/12/18 documented as of this encounter
--- OUTSIDE RECORDS SUMMARY | 2024-08-04 15:28 | XMS_ITS | Patient Health Record ---
Author Organization [facility] Address [address] [place] [phone] Care Team Providers Care Geodetic Engineer Name Role Phone Aster GOMEZ, Karina Primary Care Provider Unavailabl e [place] Sampson Jr Unavailable Melody Pham Unavailable Unavailable Reason For Referral No Information Medications Medication SIG (Take, Route, Frequency, Duration) Notes Start Date End Date Status clonazePAM 1 MG TOME ANETA TABLETA DOS VECES AL D A CUANDO SEA NECESARIO Oral for 30 Active Loratadine 10 MG TOME ANETA TABLETA TOD OS LOS D Oral for 90 Active ProAir HFA 108 (90 Base) MCG/ACT TOME DOS INHALACIONES POR V A ORAL CADA CUATRO A SEIS HORAS CUANDO SEA NECESARIO Inhalation for 16 Active traZODone HCl 50 MG TAKE 1/2 1 TABLETA P OR V A ORAL TODOS LOS D AL ACOSTARSE CUANDO SEA NECESARIO PARA DORMIR Oral for 30 Active Simvastatin 20 MG TOME ANETA TABLETA TOD OS LOS D EN LA NOCHE Oral for 30 Active Lisinopril 10 MG TOME ANETA TABLETA TOD OS LOS D Oral for 30 Active Alendronate Sodium 70 MG TAKE 1 TABLET E VERY WEEK IN THE AM AT LEAST 30 MIN BEFORE FIRST FOOD, BEVERAGE, OR MEDICATION OF DAY Oral for 28 Active Fluticasone Propionate 50 MCG/ACT SPRAY 1 SPRAY INTO EACH NOSTRIL TODOS LOS D Nasal for 60 Active Montelukast Sodium 10 MG TOME ANETA TABLET A TODOS LOS D EN LA NOCHE Oral for 30 Active Anastrozole 1 MG TOME ANETA TABLETA TOD OS LOS D Oral for 90 Active Cromolyn Sodium 4 % PONGA ANETA GOTA EN OJ O AFECTADO CUATRO VECES AL D A Ophthalmic for 25 Active Latanoprost 0.005 % INSTILL 1 DROP IN AF FECTED EYE(S) CADA NOCHE Ophthalmic for 90 Active Sertraline HCl 100 MG TOME DOS TABLETAS POR V A ORAL TODOS LOS D Oral for 30 Active Immunizations Vaccine Route Administration Date Status Comme nts Influenza Unknown 01/11/2020 Administered Social History Tobacco Use: Social History Observation Description Date Details (start date - stop date) Never Smoker NA - NA Tobacco Use/Smoking Question Answer Notes Patient is a nonsmoker Alcohol Screen Question Answer Notes Did you have a drink containing alcohol in the p ast year? No Points 0 Interpretation Negative Problems Problem Type SNOMED Code ICD Code Onset Dates Problem Status W/U Status Risk Notes Problem [id number] Colon cancer screening (Z12.11) Active confirmed Plan Of Treatment Future Test Test Name Order Date COLONOSCOPY 11/10/2020 Insurance Providers Payer Name Payer Address Payer Phone Subscriber Number Group Number Insured Name Patient Relationship to Insured Coverage Start Date Coverage End Date MEDICAID OF [place] [address] [place] [address] [id number] RIMA COLLIER Self - patient is the insured Medical (General) History Medical History History ICD Code Anxiety/depression hypertension GERD breast cancer 1996,1998, 2015 /3 times Elevated cholesterol Allergic rhinitis Surgical History Surgery Date(Month/Year) mastectomy lumpectomy
--- OUTSIDE RECORDS SUMMARY | 2024-08-04 15:28 | XMS_ITS | Encounter Summary ---
Author Organization [employer] Address [address] [facility] 7t [place] [address] Care Team Providers Care Welding Estimator Name Role Phone Karina Rodarte MD Primary Care Provider [phone] Reason for Referral * Consultation (Routine) - Closed Specialty Diagnoses / Procedures Referred By Contvargas t Referred To Contact Endocrinology Diagnoses Osteoporosis without current pathological fracture, unspecified osteoporosis type Karina Rodarte MD [address] [place] [address] Phone: tel: fax: [facility] Endocrinology [address] [place], [place] Phone: tel: fax: Referral ID Status Reason Start Date Expiration Date V isits Requested Visits Authorized [id number] Closed Specialty Services Required 09/07/2023 09/06/2024 1 1 Encounter Details Date Type Department Care Team (Late st Contact Info) Description 09/07/2023 Orders Only [facility] MEDICINE [address] [place] [phone] Karina Rodarte MD [address] [place], [place] [phone] Osteoporosis without current pathological fracture, unspecified osteoporosis type (Primary Dx); Dyslipidemia Social History Tobacco Use Types Packs/Day Years [...] Description 08/10/2024 2:30 PM EDT Clinical Support [facility] MEDICINE [address] [place] [phone] Scheduled Referrals Name Type Priority Associated Diagnoses Orde r Schedule Referral to Endocrinology Outpatient Referral Routine Osteoporosis without current pathological fracture, unspecified osteoporosis type Expected: 09/07/2023 (Approximate), Expires: 09/06/2024 documented as of this encounter Visit Diagnoses Diagnosis Osteoporosis without current pathological fracture, unspecified osteoporosis type- Primary Dyslipidemia Other and unspecified hyperlipidemia documented in this encounter Additional Health Concerns Assessment Noted Time PHQ-9 Depression Total Score: 11 023 2:16 PM EDT documented as of this encounter Care Teams Welding Estimator Relationship Specialty Start Date End Date Karina Rodarte MD [address] [place] [phone] PCP - General Family Medicine 05/12/18 documented as of this encounter
--- OUTSIDE RECORDS SUMMARY | 2024-08-04 15:28 | XMS_ITS | Encounter Summary ---
Author Organization [employer] Address [address] [facility] 7t [place] [address] Care Team Providers Care Roll Off Driver Name Role Phone Karina Rodarte MD Primary Care Provider [phone] Encounter Details Date Type Department Care Team ([facility] Contact Info) Description 07/28/2024 Orders Only GENERIC EXTERNAL DATA DEPARTMENT Provider, Generic External Data Social History Tobacco Use Types Packs/Day Years [...] Description 08/10/2024 2:30 PM EDT Clinical Support [facility] MEDICINE [address] [place] [address] documented as of this encounter Procedures Procedure Name Priority Date/Time Associated Diagnosis Comments CREATININE, 24 HR GROUP Routine 07/28/2024 8:00 AM EDT CALCIUM, 24 HOUR URINE (W/ CREATININE) Routine 07/28/2024 8:00 AM EDT documented in this encounter Results * Calcium, 24 Hour Urine W/ Creatinine (07/28/2024 8:00 AM EDT) Calcium, 24 Hour Urine 142 mg/24 h [facility] Comment:Reference Range 35-2 50 Low calcium diet 35-200 Calcium/Creatini ne Ratio 162 30 - 275 mg/g creat [facility] Creatinine, 24 Hour Urine 0.87 0.50 - 2.15 g/24 h [facility] Comment:THIS TEST WAS PERFOR MED AT:[employer] [place] [phone] SANTANA MD 07/28/2024 8:00 AM EDT 07/28/2024 2:41 PM EDT Narrative [facility] - 08/04/2024 8:12 AM EDT [id number] us Generic External Data Provider LAB URINE ORDERAB LES Final Result [facility] [address] [place] [address] [phone] * (ABNORMAL) CREATININE, 24 HR GROUP (07/28/2024 8:00 AM EDT) Creatinine, 24 Hour Urine 0.9(L) 1.0 - 2.0 G/Day [facility] Creatinine, Urine 53.84 [facility] Urine Total Volume 24 Hour 1,650 mL [facility] 07/28/2024 8:00 AM EDT 07/28/2024 2:41 PM EDT Narrative [facility] - 07/28/2024 8:58 PM EDT [id number] us Generic External Data Provider LAB URINE ORDERAB LES Final Result [facility] [address] [place] [address] [phone] documented in this encounter Visit Diagnoses Not on filedocumented in this encounter Additional Health Concerns Assessment Noted Time PHQ-9 Depression Total Score: 11 09/17/ 023 2:16 PM EDT documented as of this encounter Care Teams Roll Off Driver Relationship Specialty Start Date End Date Karina Rodarte MD [address] [place] [id number] PCP - General Family Medicine 05/12/18 documented as of this encounter
--- OUTSIDE RECORDS SUMMARY | 2024-08-04 15:28 | XMS_ITS | Encounter Summary ---
Author Organization [employer] Address [address] [facility] [address]t [place] [address] Care Team Providers Care Photographic Engineer Name Role Phone Karina Rodarte MD Primary Care Provider [phone] Reason for Visit * Reason Comments Med Refill Encounter Details Date Type Department Care Team ([facility] st Contact Info) Description 07/21/2024 Refill [facility] MED[facility] [address] [place], [place] [phone] Karina Rodarte MD [address] [place], [place] [phone] Primary hypertension Social History Tobacco Use Types Packs/Day Years [...] Description 08/10/2024 2:30 PM EDT Clinical Support [facility] MED[facility] [address] [place] [address] documented as of this encounter Visit Diagnoses Diagnosis Primary hypertension Unspecified essential hypertension documented in this encounter Additional Health Concerns Assessment Noted Time PHQ-9 Depression Total Score: 11 023 2:16 PM EDT documented as of this encounter Care Teams Photographic Engineer Relationship Specialty Start Date End Date Karina Rodarte MD [address] [place] [address] PCP - General Family Medicine 05/12/18 documented as of this encounter
--- OUTSIDE RECORDS SUMMARY | 2024-08-04 15:28 | XMS_ITS | Encounter Summary ---
Author Organization [employer] Address [address] [facility] [address] [place] [address] Care Team Providers Care Career Agent Name Role Phone Karina Rodarte MD Primary Care Provider [phone] Encounter Details Date Type Department Care Team (Latest Contact Info) Description 07/19/2024 Travel Social History Tobacco Use Types Packs/Day Years [...] Description 08/10/2024 2:30 PM EDT Clinical Support [facility] MEDICINE [address] [place] [address] documented as of this encounter Visit Diagnoses Not on filedocumented in this encounter Additional Health Concerns Assessment Noted Time PHQ-9 Depression Total Score: 11 023 2:16 PM EDT documented as of this encounter Care Teams Career Agent Relationship Specialty Start Date End Date Karina Rodarte MD [address] [place] [address] PCP - General Family Medicine 05/12/18 documented as of this encounter
--- OUTSIDE RECORDS SUMMARY | 2024-08-04 15:28 | XMS_ITS | Clinical Summary ---
Author Organization [employer] Address [address] [place] [address] [address] [place] [address] Care Team Providers Care Direct Chill Casting Operator Name Role Phone Karina Rodarte MD Primary Care Provider [phone] Allergies Active Allergy Reactions Criticality Noted Date Comments Chlorthalidone 09/03/2012 Other reaction(s): chest tight,leg spasm,constipati Omeprazole 12/02/2011 Medications cromolyn (Opticrom) 4 % ophthalmic solution Administer 1 drop into both eyes 4 times daily. Affected eyes 12/29/19 22 Active latanoprost (Xalatan) 0.005 % ophthalmic solution Administer 1 drop into both eyes at bedtime. Affected eyes Active sertraline (Zoloft) 100 MG tablet Take 2 tablets by mouth Once daily. Active traZODone (Desyrel) 50 MG tablet Take 1/2 to 1 tablet by mouth at bedtime as needed for sleep Active brimonidine (AlphaGAN P) 0.2 % ophthalmic solution Administer 1 drop into both eyes 3 times daily. 04/26/20 22 Active pantoprazole (Protonix) 40 MG EC tablet Take 1 tablet (40 mg) by mouth before breakfast. Do not crush, chew, or split. 30 tablet 11 09/18/19 23 Active hydrOXYzine pamoate (Vistaril) 25 MG capsule TOME 1 CAPSULA POR VIA ORAL CADA DOCE HORAS CUANDO SEA NECESARIO PARA LA ANSIEDAD 60 capsule 3 12/17/19 23 Active triamcinolone (Kenalog) 0.1 % cream Apply topically if needed in the morning and at bedtime (pain and swelling). 30 g 09/15/19 24 Active rosuvastatin (Crestor) 5 MG tablet Take 1 tablet (5 mg) by mouth Once per day. 30 tablet 11 09/15/19 24 025 Active hydrocortisone 2.5 % cream Apply pea sized amount to skin bid for 1 week 28.35 g 12/09/19 24 Active fluticasone (Flonase) 50 MCG/ACT nasal sprayIndication s:Allergic rhinitis, unspecified seasonality, unspecified trigger SPRAY 1 SPRAY INTO EACH NOSTRIL EVERY DAY 48 mL 1 01/13/20 24 Active loratadine (Claritin) 10 MG tablet TAKE 1 TABLET BY MOUTH EVERY DAY 90 tablet 1 01/16/20 24 Active famotidine (Pepcid) 20 MG tabletIndicatio ns:Heartburn TOME 1 TABLETA POR VIA ORAL DOS VECES AL REDD EN LA MANANA Y AL ACOSTARSE CUANDO SEA NECESARIO 180 tablet 1 03/18/20 24 Active alendronate (Fosamax) 70 MG tabletIndicatio ns:Other osteoporosis without current pathological fracture TAKE 1 TABLET (70 MG) BY MOUTH EVERY 7 (SEVEN) DAYS. TAKE IN THE MORNING WITH A FULL GLASS OF WATER, ON AN EMPTY STOMACH, AND DO NOT TAKE ANYTHING ELSE BY MOUTH OR LIE DOWN FOR THE NEXT 30 MIN. 12 tablet 06/21/19 25 Active meclizine (Antivert) 25 MG tabletIndicatio ns:Vertigo TAKE 1 TABLET BY MOUTH THREE TIMES A DAY IF NEEDED FOR VERTIGO 30 tablet 06/21/19 25 Active albuterol (Ventolin HFA) 108 (90 Base) MCG/ACT inhalerIndicati ons:Mild intermittent asthma without complication INHALE 2 PUFFS BY INHALATION EVERY 4-6 HOURS NEEDED 18 g 07/07/19 25 Active ferrous sulfate 325 (65 Fe) MG tablet TAKE 1 TABLET BY MOUTH EVERY DAY 90 tablet 1 07/20/19 25 Active amLODIPine-olme sartan (Stew) 5-20 MG tablet Take 1 tablet by mouth Once per day. 90 tablet 3 07/20/19 25 Active montelukast (Singulair) 10 MG tablet TOME ANETA TABLETA TODOS LOS DURANT AT NOCHE 90 tablet 3 07/23/19 25 Active rosuvastatin (Crestor) 10 MG tablet Take 1 tablet (10 mg) by mouth at bedtime. 30 tablet 11 07/30/19 25 026 Active montelukast (Singulair) 10 MG tablet TOME ANETA TABLETA AL REDD AT NOCHE 90 tablet 3 09/01/19 24 025 Discontinued lisinopril 20 MG tabletIndicatio ns:Primary hypertension TAKE 1 TABLET BY MOUTH EVERY DAY 90 tablet 3 10/03/19 24 025 Discontinued albuterol (Ventolin HFA) 108 (90 Base) MCG/ACT inhalerIndicati ons:Mild intermittent asthma without complication INHALE 2 PUFFS BY INHALATION EVERY 4-6 HOURS NEEDED 18 g 1 11/14/19 24 025 Discontinued(R eorder (will not trigger notification to Pharmacy)) ferrous sulfate 325 (65 Fe) MG tablet TAKE 1 TABLET BY MOUTH EVERY DAY 90 tablet 1 03/05/20 24 025 Discontinued(R eorder (will not trigger notification to Pharmacy)) lisinopril 20 MG tabletIndicatio ns:Primary hypertension TAKE 1 TABLET BY MOUTH EVERY DAY 90 tablet 3 07/07/19 25 025 Discontinued(A lternate therapy) Active Problems Problem Noted Date Diagnosed Date Vertigo 09/07/2023 Assessment & Plan (09/07/2023 4:50 PM EDT): - likely BPPV - recommended to try Marleen maneuver at home Chronic pain of both knees 12/29/2022 Assessment & Plan (12/29/2022 6:39 AM EDT): - likely OA - Discussed Tx options, including joint injection and ortho referral; pt chose PT - refer to PT - take APAP prn Back pain with radiculopathy 12/29/2022 Assessment & Plan (12/29/2022 6:47 AM EDT): - refer to physical therapy Restless leg syndrome 09/17/2022 Assessment & Plan (12/29/2022 6:35 AM EDT): - normal iron level - check the status of sleep study Assessment & Plan (09/17/2022 5:00 PM EDT): Will check Iron Level If it is normal, will evaluate with Sleep Study Osteoporosis 05/24/2022 Assessment & Plan (07/24/2024 6:57 AM EDT): - DEXA in Feb 2016 showed osteopenia - Completed 5 year of alednronate treatment course in Apr 2021. - Most recent DEXA on 03/11/23 showed worsening bone density, -2.5 in lumbar spine and -2.1 in hip - Seen by panel assembler on 04/21/24. Ordered secondary work-up. Continue calcium and vitamin D supplementation. Drug holiday at this time. - Continue weight bearing exercise - Upcoming appointment with panel assembler this month Assessment & Plan (09/07/2023 4:45 PM EDT): - DEXA in Feb 2016 showed osteopenia - Completed 5 year of alednronate treatment course in Apr 2021. - Most recent DEXA on 03/11/23 showed worsening bone density, -2.5 in lumbar spine and -2.1 in hip - Will refer to panel assembler for another recommendation Assessment & Plan (04/28/2023 5:42 AM EST): - DEXA in Feb 2016 showed osteopenia - Completed 5 year treatment course in Apr 2021. - Most recent DEXA on 03/11/23 showed worsening bone density, -2.5 in lumbar spine and -2.1 in hip - Will ask oncologist for alternative treatment. Assessment & Plan (09/23/2022 6:51 AM EDT): - DEXA in Feb 2016 showed osteopenia - Started Fosamax 70 mg weekly since Apr 2016. - Recently completed 5 year treatment course in Apr 2021. - Likely re-start bisphosphonate or refer to panel assembler - order DEXA Assessment & Plan (05/24/2022 10:06 AM EST): - DEXA in Feb 2016 showed osteopenia - Started Fosamax 70 mg weekly since Apr 2016. - Recently completed 5 year treatment course in Apr 2021. - Likely re-start bisphosphonate or refer to panel assembler - Her oncologist recently ordered DEXA - will confirm. Paresthesia of right leg 05/24/2022 Assessment & Plan (04/28/2023 5:40 AM EST): - lateral aspect, numbness without pain - differential dx: meralgia paresthetica / lateral femoral cutaneous nerve entrapment; lumbar radiculopathy; neuropathy from previous chemotherapy - 11/14/22 EMG/NCT Chronic lower lumbar radiculopathy Assessment & Plan (12/29/2022 6:38 AM EDT): - lateral aspect, numbness without pain - differential dx: meralgia paresthetica / lateral femoral cutaneous nerve entrapment; lumbar radiculopathy; neuropathy from previous chemotherapy - 11/14/22 EMG/NCT Chronic lower lumbar radiculopathy Assessment & Plan (09/23/2022 6:59 AM EDT): - lateral aspect - ?meralgia paresthetica / lateral femoral cutaneous nerve entrapment - numbness, rather than pain - symptom has improved, yet with new symptom - evaluate with NCT Assessment & Plan (05/24/2022 10:47 AM EST): - lateral aspect - ?meralgia paresthetica / lateral femoral cutaneous nerve entrapment - numbness, rather than pain - monitor at this time; reviewed si/sx to seek an early medical attention Colon cancer screening 05/24/2022 Assessment & Plan (05/24/2022 10:22 AM EST): - colonoscopy by Dr. Sampson on 03/31/09 normal - colonoscopy by Dr. Sampson on 12/01/20 hyperplastic polyp, repeat in 10 years Cervical cancer screening 05/24/2022 Assessment & Plan (05/24/2022 10:27 AM EST): - Hx tamoxifen treatment for breast cancer - PAP by PCP on 10/31/07 NILM with negative high-risk HPV - PAP by [facility], Dr. Miller, on 05/18/21 NILM with negative high-risk HPV --EMBx for PMB on 07/23/21 normal Mixed anxiety and depressive disorder 03/14/2015 Assessment & Plan (07/20/2024 2:26 AM EDT): - continue current BH treatment with [facility] - continue sertraline and hydroxyzine - treatment history: Clonazepam was discontinued due to dizziness Assessment & Plan (09/07/2023 4:46 PM EDT): - continue current BH treatment with [facility] - continue sertraline and hydroxyzine - treatment history: Clonazepam was discontinued due to dizziness Assessment & Plan (05/04/2023 10:26 AM EST): - continue current BH treatment with [facility] - continue sertraline and hydroxyzine - treatment history: Clonazepam was discontinued due to dizziness Assessment & Plan (12/29/2022 6:44 AM EDT): - continue current BH treatment with [facility] - continue sertraline and hydroxyzine - pt is no longer taking clonazepam Assessment & Plan (05/20/2022 6:00 AM EST): -[place]ologist[place] [facility] seen on 04/18/22 -Most recent imagin03/07/22 Diagnostic unilateral mammo, Right. BI-RADS 2. Annual mammo. -Continue Arimidex. Diagnosis / History: 1. 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 Dx in 1996. 2. Recurrence in 1998. 3. 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 ER/WA positive. Her-2/Richie positive. Dx in 2005 Stage T1. 4. 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 ER/WA positive. Treatment history: 1. AC x 3 cycles. 2. Did not receive radiation. 3. Tamoxifen discontinued due to side effects. 4. Mastectomy (left) 04/03/1999 5. 4 cycles of Adriamycin and Taxotere 6. Arimidex 5 years completed in 2004 7. Navelbine March 2006 to July 2006 8. Herceptin March 2006 to March 2007 9. Letrozole November 2007, self-discontinued 10. Tamoxifen prescribed in 2008, but never taken. 11. Lumpectomy of right breast DCIS on 08/30/14 12. Radiation therapy October-November 2014 13. Tamoxifen November 2014 - November 2016. Discontinued due to concern for Wt gain 14. Arimidex since November 2016 - current Continue current treatment plan by Dr. Pham Breast cancer 12/06/2014 Assessment & Plan (07/24/2024 6:58 AM EDT): -[place] [facility] seen in May 2024 -Most recent imaging: Mammo on 03/11/23 BI-RADS 2 -Continue Arimidex. Diagnosis / History: 1. 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 Dx in 1996. 2. Recurrence in 1998. 3. 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 ER/WA positive. Her-2/Richie positive. Dx in 2005 Stage T1. 4. 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 ER/WA positive. Treatment history: 1. AC x 3 cycles. 2. Did not receive radiation. 3. Tamoxifen discontinued due to side effects. 4. Mastectomy (left) 04/03/1999 5. 4 cycles of Adriamycin and Taxotere 6. Arimidex 5 years completed in 2004 7. Navelbine March 2006 to July 2006 8. Herceptin March 2006 to March 2007 9. Letrozole November 2007, self-discontinued 10. Tamoxifen prescribed in 2008, but never taken. 11. Lumpectomy of right breast DCIS on 08/30/14 12. Radiation therapy October-November 2014 13. Tamoxifen November 2014 - November 2016. Discontinued due to concern for Wt gain 14. Arimidex since November 2016 - current Continue current treatment plan by Dr. Pham Assessment & Plan (09/07/2023 4:48 PM EDT): -[place]cologist[place] [facility] seen in May 2023 -Most recent imaging: Mammo on 03/11/23 BI-RADS 2 -Continue Arimidex. Diagnosis / History: 1. 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 Dx in 1996. 2. Recurrence in 1998. 3. 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 ER/WA positive. Her-2/Richie positive. Dx in 2005 Stage T1. 4. 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 ER/WA positive. Treatment history: 1. AC x 3 cycles. 2. Did not receive radiation. 3. Tamoxifen discontinued due to side effects. 4. Mastectomy (left) 04/03/1999 5. 4 cycles of Adriamycin and Taxotere 6. Arimidex 5 years completed in 2004 7. Navelbine March 2006 to July 2006 8. Herceptin March 2006 to March 2007 9. Letrozole November 2007, self-discontinued 10. Tamoxifen prescribed in 2008, but never taken. 11. Lumpectomy of right breast DCIS on 08/30/14 12. Radiation therapy October-November 2014 13. Tamoxifen November 2014 - November 2016. Discontinued due to concern for Wt gain 14. Arimidex since November 2016 - current Continue current treatment plan by Dr. Pham Assessment & Plan (04/28/2023 5:46 AM EST): -[place]ologist[place] [facility] seen on 04/18/22 -Most recent imagin03/07/22 Diagnostic unilateral mammo, Right. BI-RADS 2. Annual mammo. -Continue Arimidex. Diagnosis / History: 1. 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 Dx in 1996. 2. Recurrence in 1998. 3. 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 ER/WA positive. Her-2/Richie positive. Dx in 2005 Stage T1. 4. 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 ER/WA positive. Treatment history: 1. AC x 3 cycles. 2. Did not receive radiation. 3. Tamoxifen discontinued due to side effects. 4. Mastectomy (left) 04/03/1999 5. 4 cycles of Adriamycin and Taxotere 6. Arimidex 5 years completed in 2004 7. Navelbine March 2006 to July 2006 8. Herceptin March 2006 to March 2007 9. Letrozole November 2007, self-discontinued 10. Tamoxifen prescribed in 2008, but never taken. 11. Lumpectomy of right breast DCIS on 08/30/14 12. Radiation therapy October-November 2014 13. Tamoxifen November 2014 - November 2016. Discontinued due to concern for Wt gain 14. Arimidex since November 2016 - current Continue current treatment plan by Dr. Pham Assessment & Plan (12/29/2022 6:44 AM EDT): -[place] [facility] on 04/18/22 -Most recent imagin03/07/22 Diagnostic unilateral mammo, Right. BI-RADS 2. Annual mammo. -Continue Arimidex. Diagnosis / History: 1. 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 Dx in 1996. 2. Recurrence in 1998. 3. 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 ER/WA positive. Her-2/Richie positive. Dx in 2005 Stage T1. 4. 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 ER/WA positive. Treatment history: 1. AC x 3 cycles. 2. Did not receive radiation. 3. Tamoxifen discontinued due to side effects. 4. Mastectomy (left) 04/03/1999 5. 4 cycles of Adriamycin and Taxotere 6. Arimidex 5 years completed in 2004 7. Navelbine March 2006 to July 2006 8. Herceptin March 2006 to March 2007 9. Letrozole November 2007, self-discontinued 10. Tamoxifen prescribed in 2008, but never taken. 11. Lumpectomy of right breast DCIS on 08/30/14 12. Radiation therapy October-November 2014 13. Tamoxifen November 2014 - November 2016. Discontinued due to concern for Wt gain 14. Arimidex since November 2016 - current Continue current treatment plan by Dr. Pham Dyslipidemia 05/23/2014 Assessment & Plan (09/07/2023 4:47 PM EDT): - current medication: simvastatin 20 mg at bedtime - last lipid profile 05/06/23 - 10-year ASCVD risk > 7.5% - switch to atorvastatin 20 mg qhs - continue working on lifestyle modification - recheck lab in 1-2 mo after new medication Assessment & Plan (04/28/2023 5:45 AM EST): - current medication: simvastatin 20 mg at bedtime - last lipid profile 05/21/22 TC 192 ; HDL 63 ; LDL 104 ; TG 151 - continue current medication - continue working on lifestyle modification - annual lab Assessment & Plan (09/23/2022 6:53 AM EDT): - current medication: simvastatin 20 mg at bedtime - last lipid profile 05/21/22 TC 192 ; HDL 63 ; LDL 104 ; TG 151 - continue current medication - continue working on lifestyle modification - annual lab Allergic rhinitis 07/07/2013 Assessment & Plan (05/04/2023 10:27 AM EST): -evaluated by Dr. Rhodes, last seen in May 2019 -s/p allergy test in 2019 -allergens: ragweed pollen; grass; tree; cat dander; dust mites -Continue montelukast 10 mg qhs -Continue antihistamine, currently on loratadine 10 mg daily -Continue Flonase. -Previously on cromolyn ophthalmic prn -Pt will consider immunotherapy, and will contact us if she wants to proceed. Assessment & Plan (09/17/2022 2:58 PM EDT): -evaluated by Dr. Rhodes, last seen in May 2019 -s/p allergy test in 2019 -allergens: ragweed pollen; grass; tree; cat dander; dust mites -Continue Singulair 10 mg qhs -Continue antihistamine, currently on loratadine 10 mg daily -Continue Flonase. -Previously on cromolyn ophthalmic prn -Pt will consider immunotherapy, and will contact us if she wants to proceed. Assessment & Plan (05/20/2022 6:02 AM EST): -evaluated by Dr. Rhodes, last seen in May 2019 -s/p allergy test in 2019 -allergens: ragweed pollen; grass; tree; cat dander; dust mites -Continue Singulair 10 mg qhs -Continue antihistamine, currently on loratadine 10 mg daily -Continue Flonase. -Previously on cromolyn ophthalmic prn -Pt will consider immunotherapy, and will contact us if she wants to proceed. Chronic urticaria 10/14/2012 Hypertension 08/20/2012 Assessment & Plan (07/24/2024 6:55 AM EDT): -Goal BP < 150/90 per JNC-8 ; Goal BP <130/80 per AHA/ACC -BP elevated today -Continue working on life style modifications -Continue lisinopril 10 mg daily. -Check home BP -Ordered lab on 07/19/24 Assessment & Plan (09/07/2023 4:43 PM EDT): -Goal BP < 150/90 per JNC-8 ; Goal BP <130/80 per AHA/ACC -BP within acceptable range today -Continue working on life style modifications -Continue lisinopril 10 mg daily. -Check home BP -Follow up in 4-6 mo or sooner prn Assessment & Plan (04/28/2023 5:40 AM EST): -Goal BP < 150/90 per JNC-8 ; Goal BP <130/80 per AHA/ACC -BP within acceptable range today -Continue working on life style modifications -Continue lisinopril 10 mg daily. -Check home BP -Follow up in 4-6 mo or sooner prn Assessment & Plan (12/29/2022 6:38 AM EDT): -Goal BP < 150/90 per JNC-8 ; Goal BP <130/80 per AHA/ACC -BP within acceptable range today -Continue working on life style modifications -Continue lisinopril 10 mg daily. -Check home BP -Follow up in 4-6 mo or sooner prn Assessment & Plan (09/23/2022 6:49 AM EDT): -Goal BP < 150/90 per JNC-8 ; Goal BP <130/80 per AHA/ACC -BP within acceptable range today -Continue working on life style modifications -Continue lisinopril 10 mg daily. -Check home BP -Follow up in 4-6 mo or sooner prn Assessment & Plan (05/24/2022 10:00 AM EST): -Goal BP < 150/90 per JNC-8 ; Goal BP <130/80 per AHA/ACC -BP within acceptable range today -Continue working on life style modifications -Continue lisinopril 10 mg daily. -Check home BP Gastroesophageal reflux disease 12/02/2011 Assessment & Plan (09/07/2023 4:44 PM EDT): - Pt had adverse drug reaction to omeprazole - negative H. Pylori - continue pantoprazole in the morning - continue famotidine at bedtime, may take up to bid Assessment & Plan (09/23/2022 6:51 AM EDT): - Pt had adverse drug reaction to omeprazole - currently on famotidine 20 mg bid - negative H. Pylori - Will ad pantoprazole in the morning - continue famotidine at bedtime Assessment & Plan (05/24/2022 10:01 AM EST): - Pt had adverse drug reaction to omeprazole - will prescribe famotidine 20 mg bid - check H. pylori Impaired fasting glucose 12/01/2009 Assessment & Plan (07/20/2024 2:26 AM EDT): -07/21/20 A1C 6.0% -06/04/21 A1C 5.9% -05/21/22 A1C 5.9% -05/06/23 A1C 5.7%, improving -Continue working on lifestyle modifications -Annual screening - Ordered Hemoglobin A1c 07/19/24 Assessment & Plan (09/07/2023 4:46 PM EDT): -07/21/20 A1C 6.0% -06/04/21 A1C 5.9% -05/21/22 A1C 5.9% -05/06/23 A1C 5.7%, improving -Continue working on lifestyle modifications -Annual screening Assessment & Plan (04/28/2023 5:44 AM EST): -07/21/20 A1C 6.0% -06/04/21 A1C 5.9% -05/21/22 A1C 5.9% -Continue working on lifestyle modifications -Annual screening Assessment & Plan (12/29/2022 6:39 AM EDT): -07/21/20 A1C 6.0% -06/04/21 A1C 5.9% -05/21/22 A1C 5.9% -Continue working on lifestyle modifications -Annual screening Assessment & Plan (09/23/2022 6:52 AM EDT): -07/21/20 A1C 6.0% -06/04/21 A1C 5.9% -05/21/22 A1C 5.9% -Continue working on lifestyle modifications -Annual screening Assessment & Plan (05/20/2022 6:04 AM EST): -07/21/20 A1C 6.0% -06/04/21 A1C 5.9% -Continue working on lifestyle modifications -Annual screening History of left mastectomy 04/03/1999 Resolved Problems Problem Noted Date Diagnosed Date Resolved Date Cough 05/14/2022 05/20/2022 Osteoporosis 05/14/2022 05/24/2022 Rash in adult 05/14/2022 05/20/2022 Encounters Date Type Department Care Team Description 07/29/2024 Refill [facility] [address] [place] [address] Lyudmila Nava, CHICO 07/28/2024 Orders Only GENERIC EXTERNAL DATA DEPARTMENT Provider, Generic External Data 07/21/2024 Refill [facility] [address] [place] [address] Karina Rodarte MD Primary hypertension 07/19/2024 3:45 PM EDT Office Visit [facility] [address] [place] [address] Karina Rodarte MD Primary hypertension (Primary Dx); Osteoporosis without current pathological fracture, unspecified osteoporosis type; Bilateral malignant neoplasm of breast in female, estrogen receptor positive, unspecified site of breast (CMS/HCC); Mixed anxiety and depressive disorder; Impaired fasting glucose; Dietary counseling; Exercise counseling; Class 1 obesity due to excess calories with serious comorbidity and body mass index (BMI) of 30.0 to 30.9 in adult 07/19/2024 Travel 07/15/2024 Telephone [facility] [address] [place] [address] Karina Rodarte MD chart prep 07/06/2024 Refill [facility] [address] [place] [address] Karina Rodarte MD Primary hypertension; Mild intermittent asthma without complication 06/19/2024 Refill [facility] [address] [place], [place] [id number] Chayito Ball, ANP Vertigo 06/19/2024 Refill [facility] [address] [place] [address] Lupis Ennis MD Other osteoporosis without current pathological fracture; Vertigo 06/10/2024 Telephone [facility] [address] [place] [address] Abby Ayers MA chart prep 05/25/2024 Orders Only [facility] [address] [place] [address] Karina Rodarte MD from Last 3 Months Immunizations Name Administration Dates Next Due Influenza injectable quadriv alent IIV4 with preservative 05/20/2022,01/27/2019,01/27/2018 Influenza injectable quadriv alent preservative free 04/28/2023,03/17/2020,02/11/2017,04/17 Influenza, IIV3, injectable 05/23/2014,1 ,03/19/2002,03/23 Influenza, Split (incl. sabra fied surface antigen) 03/24/2013,01/17/2012 MMR 09/19/1995 Pfizer Covid-19 Vaccine 12+ 12/12/2020, Pfizer Covid-19 Vaccine 12+ abraham-sucrose (Sylvester Cap) 08/01/2021 Pneumococcal Polysaccharide PPSV23 02/26/2010 TD (adult), 2 Lf tetanus tox oid, preservative free, adsorbed 10/06/2003,01/29/1993 Tdap 12/23/2022,12/02/2011 Zoster, Recombinant 01/01/2022 Social History Tobacco Use Types Packs/Day Years Used Date Smoking Tobacco: Never Passive Smoke Exposure: Never Smokeless Tobacco: Never Tobacco Cessation:Counseling Given: Not Answered Depression Answer Date Recorded Patient Health Questionnaire-9 [...] Orientation Straight 03/11/2022 10 :14 AM EDT Last Filed Vital Signs Vital Sign Reading Time Taken Comments Blood Pressure 148/80 07/19/2024 4:45 PM EDT Pulse 94 07/19/2024 4:09 PM EDT Temperature 36.1 ??C (97 ??F) 07/19/2024 4:09 PM EDT Respiratory Rate 15 07/19/2024 4:09 PM EDT Oxygen Saturation 97% 07/19/2024 4:09 PM EDT Inhaled Oxygen Concentration - - Weight 73.5 kg (162 lb) 07/19/2024 4:09 PM EDT Height 154.5 cm (5' 0.83 ) 07/19/2024 4:09 PM ED T Body Mass Index 30.78 07/19/2024 4:09 PM EDT Plan of Treatment Upcoming Encounters Date Type Department Care Team (Late st Contact Info) Description 08/10/2024 2:30 PM EDT Clinical Support [address] [id number] Health Maintenance Due Date Last Done Comments CT Colonography 1958 FIT DNA/Cologuard 1958 FIT 1958 FOBT 1958 Sigmoidoscopy 1958 Alcohol/Substance Use Screening 1970 Hepatitis C Screening 02/02/1976 Pneumococcal Vaccine: 50+ Years (2 of 2 - PCV) 02/26/2011 02/26/2010 RSV Patients and Patients Aged 60 years or older (1 - Risk 60-74 years 1-dose series) 2018 Zoster Vaccines (2 of 2) 02/26/2022 01/01/2022 SDOH Screening 09/18/2023 09/17/2022 Depression Monitoring (PHQ-9) 10/28/2023 04/28/2023, 09/17/2022 COVID-19 Vaccine ( season) 2024 08/01/2021, 12/12/2020, 11/22/2020 Influenza Vaccine (#1) 2024 , 05/20/2022, 03/17/2020, Additional history exists Depression Screening 04/28/2024 04/28/2023, 09/18/19 23 Mammogram 05/25/2025 05/25/2024, 02/11, 03/07/2022, Additional history exists Tobacco Screening 07/24/2025 07/24/2024 Diabetes: Hemoglobin A1C 07/28/2025 025, 05/06/2023, 05/21/2022, Additional history exists Lipid Panel 07/28/2029 07/28/2024, 04/12, 05/21/2022, Additional history exists Colonoscopy 12/01/2030 12/01/2020 Colorectal Cancer Screening 12/01/2030 DTaP/Tdap/Td Vaccines (3 - Td or Tdap) 12/23/2032 12/23/2022, 12/02/2011, 10/06/2003, Additional history exists HPV/Cotest Discontinued 05/17/2021, 10/2021, 11/21/2020, Additional history exists Cervical Cancer Screening Discontinued Pap Smear Discontinued 05/18/2021, 11/21/2020 HIB Vaccines Aged Out No longer eligi ble based on patient's age to complete this topic HPV Vaccines Aged Out No longer eligi ble based on patient's age to complete this topic Hepatitis A Vaccines Aged Out No long er eligible based on patient's age to complete this topic Hepatitis B Vaccines Aged Out No long er eligible based on patient's age to complete this topic IPV Vaccines Aged Out No longer eligi ble based on patient's age to complete this topic Meningococcal Vaccine Aged Out No otny jennie eligible based on patient's age to complete this topic RSV under 20 months Aged Out No longe r eligible based on patient's age to complete this topic Rotavirus Vaccines Aged Out No longer eligible based on patient's age to complete this topic Procedures Procedure Name Priority Date/Time Associated Diagnosis Comments LIPID PANEL WITH REFLEX TO DIRECT LDL Routine 07/28/2024 2:00 PM EDT Primary hypertension COMPREHENSIVE METABOLIC PANEL Routine 07/28/2024 2:00 PM EDT Primary hypertension HEMOGLOBIN A1C Routine 07/28/2024 2:00 PM EDT Impaired fasting glucose CALCIUM, 24 HOUR URINE (W/ CREATININE) Routine 07/28/2024 8:00 AM EDT CREATININE, 24 HR GROUP Routine 07/28/2024 8:00 AM EDT BI MAMMOGRAM SCREENING TOMOSYNTHESIS RIGHT Routine 05/25/2024 2:10 PM EST HM PAP/HPV Routine 05/18/2021 ZZZ HISTORICAL HPV E6/E7 RFLX LILY 16 18/45 Routine 05/17/2021 2:23 PM EST HM COLONOSCOPY Routine 12/01/2020 from Last 3 Months or Most Recently Relevant to Health Maintenance Results * (ABNORMAL) Lipid Panel with Reflex to Direct LDL (07/28/2024 2:00 PM EDT) Triglycerides 215(H) <150 mg/dL [facility] Comment:Desirable Triglyceri de: less than 150 mg/dLBorderline High Triglyceride 150-199 mg/dLHigh Triglyceride: 200-499 mg/dLVery High Triglyceride: greater than or equal to 5OO mg/dL Cholesterol 185 <200 mg/dL [facility] Comment:Desirable Cholestero l: less than 200 mg/dLBorderline High Cholesterol: 200-239 mg/dLHigh Cholesterol: greater than 239 mg/dL LDL Cholesterol Calculated 82 <100 mg/dL [facility] Comment:Desirable LDL: less than 100 mg/dLNear Optimal/Above Optimal LDL: 110- 129 mg/dLBorderline High LDL: 130-159 mg/dLHigh LDL: 160-189 mg/dLVery High LDL: greater than or equal to 190 mg/dL HDL Cholesterol 60 >40 mg/dL [facility] Comment:Desirable HDL: great er than 40 mg/dL Note: This HDL assay may give artificially low results in patients with liver disease. Blood 07/28/2024 2:00 PM EDT 07/28/2024 2:00 PM EDT Karina Rodarte MD LAB BLOOD ORDERABLES Final Resul t Performing Organization Address City/[facility] Co de Phone Number [facility] [address] [place] [phone] * Hemoglobin A1c (07/28/2024 2:00 PM EDT) Hemoglobin A1c 5.8 <6.0 % [facility] Comment:Hemoglobin A1C Refer ence Range Adults: 4.8 - 6.0 % Non diabetic: < 6.0 % Goal: < 7.0 %Additional Action Suggested: > 8.0 %Note: Hemoglobin A1c results are invalid for patients with abnormal amounts of HbF. Blood transfusions may impact the HbA1c concentration in the patient sample. Estimated Average Glucose 120 mg/dL [facility] Comment:eAG = Estimated ave rage glucose which is %A1C expressed asaverage glucose, using the formula of the D5C-VyaknvcCarmtlv Glucose study (ADAG), Diabetes Care, Vol.31,#8,Dec. 2007 Blood Venous blood specimen / Unknown 07/28/2024 2:00 PM EDT 07/28/2024 2:00 PM EDT Karina Rodarte MD LAB BLOOD ORDERABLES Final Resul t [facility] [address] [place] [phone] * (ABNORMAL) Comprehensive Metabolic Panel (07/28/2024 2:00 PM EDT) Sodium 139 135 - 145 mmol/L [facility] Potassium 4.0 3.3 - 5.1 mmol/L [facility] Chloride 105 96 - 108 mmol/L [facility] Carbon Dioxide 27 22 - 29 mmol/L [facility] Anion Gap 11(L) 12 - 20 [facility] Urea Nitrogen (BUN) 16 9 - 16 mg/dL [facility] Creatinine, Serum 0.79 0.5 - 1.4 mg/dL [facility] Estimated Glomerular Filt Rate >60 [facility] Comment:Chronic Kidney Disea se: Estimated GFR < 60 mL/min/1.73j7Ugiwrm Kidney Disease: Estimated GFR < 15 mL/min/1.73m2 Glucose 77 60 - 115 mg/dL [facility] Calcium 9.7 8.4 - 10.2 mg/dL [facility] Bilirubin, Total 0.3 0.0 - 1.0 mg/dL [facility] Aspartate Amino Transferase 17 5 - 31 U/L [facility] Alanine Aminotransferase 15 0 - 31 U/L [facility] Total Protein 8.6(H) 6.5 - 8.0 g/dL [facility] Albumin Level 4.4 3.5 - 5.0 g/dL [facility] Alkaline Phosphatase 60 39 - 117 U/L [facility] Blood Venous blood specimen / Unknown 07/28/2024 2:00 PM EDT 07/28/2024 2:00 PM EDT us Karina Rodarte MD LAB BLOOD ORDERABLES Final Resul t [facility] [address] [place] [phone] [phone] * (ABNORMAL) CREATININE, 24 HR GROUP (07/28/2024 8:00 AM EDT) Creatinine, 24 Hour Urine 0.9(L) 1.0 - 2.0 G/Day [facility] Creatinine, Urine 53.84 [facility] Urine Total Volume 24 Hour 1,650 mL [facility] 07/28/2024 8:00 AM EDT 07/28/2024 2:41 PM EDT [facility] - 07/28/2024 8:58 PM EDT [id number] Generic External Data Provider LAB URINE ORDERAB LES Final Result Performing Organization Address [facility]/ZIP Co de Phone Number [facility] [address] [place] [phone] * Calcium, 24 Hour Urine W/ Creatinine (07/28/2024 8:00 AM EDT) Calcium, 24 Hour Urine 142 mg/24 h [facility] Comment:Reference Range 35-2 50 Low calcium diet 35-200 Calcium/Creatini ne Ratio 162 30 - 275 mg/g creat [facility] Creatinine, 24 Hour Urine 0.87 0.50 - 2.15 g/24 h [facility] Comment:THIS TEST WAS PERFOR MED AT:[facility] [employer] [address] [id number] SANTANA MD 07/28/2024 8:00 AM EDT 07/28/2024 2:41 PM EDT [facility] - 08/04/2024 8:12 AM EDT [id number] Generic External Data Provider LAB URINE ORDERAB LES Final Result Performing Organization Address [facility]/ZIP Co de Phone Number [facility] [address] [place] [phone] * BI Mammogram Screening Tomosynthesis Right (05/25/2024 2:10 PM EST) Anatomical Region Laterality Modality Breast Right Mammography 05/25/2024 2:10 PM EST Narrative 06/05/2024 11:25 AM EST ? [facility] [place] ? [address] ?[place] [address] ? Mammography Report ? Signed ? Patient: Liz Perdomo ?MR#: [id number] ?? [id number] ? : 1960 ?Acct:[id number] ? Age/Sex: 64 / F ?ADM Date: 05/25/24 ? Loc: HO.MAMMO ? Attending Dr: Karina Rodarte MD ? Ordering Physician: Karina Rodarte MD ?Results: 2Benign F ?? indings ? Date of Service: 05/25/24 ?Follow Up: 1 Year From Orig ?? inal Mammogram ? Procedure(s): MM tomosynthesis screening RT ?? Accession Number(s): [id number] ? cc: Karina Rodarte MD ? EXAMINATION: ?? MM SCREENING DIGITAL BREAST TOMOSYNTHESIS, BILATERAL ? CLINICAL INFORMATION: ? Screening. Asymptomatic. ??Left mastectomy. ? COMPARISON: ?? Mammography: This study is compared with prior exams dating back to ? TECHNIQUE: ?? Digital breast tomosynthesis is performed in both the craniocaudal and ?? mediolateral oblique views along with computer-aided detection (CAD). ? Synthesized 2D images are generated from the tomosynthesis. ? FINDINGS: ?? The breasts are heterogeneously dense, which may obscure small masses ?? (ACR BI-RADS breast composition Category c). ?? Postoperative changes in the upper outer quadrant are stable. Marker ?? clips are stable. ?? There are no significant masses, abnormal calcifications, or other ?? abnormalities. ? MM/MM tomosynthesis screening RT ?? IMPRESSION: ?? No mammographic evidence of malignancy. ? ASSESSMENT: ? BI-RADS BI-RADS 2 - Benign Findings ? RECOMMENDATION: ?? Routine annual mammography screening. ? 1 year F/U ? This examination should not preclude the clinical evaluation of a ?? suspicious palpable abnormality. ? This patient's information was entered into a reminder system with a ?? target due date for their next mammogram. ? Electronically signed by: ??Yessenia Mendez DO ??06/05/2024 11:22 AM EST ? Dictated By: ?Yessenia Mendez DO ? Signed By: ?<Electronically signed by Yessenia Mendez, DO in OV> ? 06/05/24 1122 ? DD/ 1410 ? TD/TT: 05/25/24 1442 ? Sensor Operator: ? Procedure Note Silvino, Michell - 06/05/2024 [place] [facility] [address] [place] [address] Mammography Report Signed Patient: Geni Perdomo#: M [id number] : 8Acct:[id number] Age/Sex: 64 / FADM Date: 05/25/24 Loc: [facility] Attending Dr: Karina Rodarte MD Ordering Physician: Karina Rodarte MDResults: 2Benign F indings Date of Service: 05/25/24Follow Up: 1 Year From Orig inal Mammogram Procedure(s): MM tomosynthesis screening RT Accession Number(s): [id number] cc: Karina Rodarte MD EXAMINATION: MM SCREENING DIGITAL BREAST TOMOSYNTHESIS, BILATERAL CLINICAL INFORMATION: Screening. Asymptomatic. Left mastectomy. COMPARISON: Mammography: This study is compared with prior exams dating back to TECHNIQUE: Digital breast tomosynthesis is performed in both the craniocaudal and mediolateral oblique views along with computer-aided detection (CAD). Synthesized 2D images are generated from the tomosynthesis. FINDINGS: The breasts are heterogeneously dense, which may obscure small masses (ACR BI-RADS breast composition Category c). Postoperative changes in the upper outer quadrant are stable. Marker clips are stable. There are no significant masses, abnormal calcifications, or other abnormalities. MM/MM tomosynthesis screening RT IMPRESSION: No mammographic evidence of malignancy. ASSESSMENT: BI-RADS BI-RADS 2 - Benign Findings RECOMMENDATION: Routine annual mammography screening. 1 year F/U This examination should not preclude the clinical evaluation of a suspicious palpable abnormality. This patient's information was entered into a reminder system with a target due date for their next mammogram. Electronically signed by: Yessenia Mendez DO 06/05/2024 11:22 AM EST Dictated By: Yessenia Mendez DO Signed By: <Electronically signed by Yessenia Mendez DO in OV> 06/05/24 1122 DD/ 1410 TD/TT: 05/25/24 1442 Sensor Operator: Karina Rodarte MD IM BI PROCEDURES Final Result * Pap Smear (05/18/2021) Pap smear NILM negative high-risk HPV Historical Provider HEALTH MAINTENANCE Final Result * HPV E6/E7 RFLX LILY 16 18/45 (05/17/2021 2:23 PM EST) HPV 16 RNA [facility] HPV 18/45 RNA [facility] HPV E6 E7 ADD [facility] HPV mRNA E6/E7 rflx Not Detected Not Detected [facility] Comment: Methodology: Engine Manager-Mediated Amplification This assay detects E6/E7 viral messenger RNA (mRNA) from 14 high-risk HPV types (16,18,31,33,35,39,45,51,52,56,58,59,66,68). The analytical performance characteristics of this assay have been determined by [facility]. The modifications have not been cleared or approved by the FDA. This assay has been validated pursuant to the CLIA regulations and is used for clinical purposes. For additional information, please refer to http://education.[employer]/faq/ZME286g4 (This link if provided for information/ educational purposes only.) THIS TEST WAS PERFORMED AT: [facility] [address] [place] [address],[address] [place], [place] ??[phone] JARED SANTANA MD 05/17/2021 2:23 PM EST Juan Miller MD HISTORICAL/NON ORDERABLE LABS Fi nal Result Performing Organization Address [facility]/State/ZIP Co de Phone Number [facility] [address] * Colonoscopy (12/01/2020) Colonoscopy hyperplastic polyp Historical Provider HEALTH MAINTENANCE Edited Result - Final from Last 3 Months or Most Recently Relevant to Health Maintenance Insurance [facility] [employer] Care Teams Direct Chill Casting Operator Relationship Specialty Start Date End Date Karina Rodarte MD [address] [place] [phone] PCP - General Family Medicine 05/12/18
--- OUTSIDE RECORDS SUMMARY | 2024-08-04 15:28 | XMS_ITS | Encounter Summary ---
Author Organization [employer] Address [address] [facility] 7[address] [place] [address] Care Team Providers Care Web Application Tester Name Role Phone Karina Rodarte MD Primary Care Provider [phone] Encounter Details Date Type Department Care Team (Late st Contact Info) Description 05/24/2022 Abstract [facility] [address] [place] [phone] Karina Rodarte MD [address] [place] [address] Social History Tobacco Use Types Packs/Day Years Used Date Smoking Tobacco: Never Passive Smoke Exposure: Never Smokeless Tobacco: Never Comments Unknown Sex and Gender Information Value Date Recorded Sex Assigned at Female 03/11/2022 10:14 AM EDT Legal Sex Female 10:14 AM EDT Gender Identity Female 03/11/2022 10:14 AM EDT Sexual Orientation Straight 03/11/2022 10 :14 AM EDT COVID-19 Exposure Response Date Recorded In the last 10 days, have yo u been in contact with someone who was confirmed or suspected to have Coronavirus/COVID-19? No / Unsure 05/20/2022 12:56 PM EST documented as of this encounter Plan of Treatment Upcoming Encounters Date Type Department Care Team (Late st Contact Info) Description 08/10/2024 2:30 PM EDT Clinical Support [facility] [address] [place] [phone] documented as of this encounter Procedures Procedure Name Priority Date/Time Associated Diagnosis Comments MAMMOGRAPHY Routine 03/07/2022 PAP/HPV Routine 05/18/2021 COLONOSCOPY Routine 12/01/2020 documented in this encounter Results * Mammography (03/07/2022) Mammogram BI-RADS 2 Comment:Right side only. Hx left mastectomy Anatomical Region Laterality Modality Other [facility] Provider HEALTH MAINTENANCE Final Result * Pap Smear (05/18/2021) Pap smear NILM negative high-risk HPV [facility] Provider HEALTH MAINTENANCE Final Result * Colonoscopy (12/01/2020) Pathologist [facility] Colonoscopy hyperplastic polyp [facility] Provider HEALTH MAINTENANCE Edited Result - Final documented in this encounter Visit Diagnoses Not on filedocumented in this encounter Care Teams Web Application Tester Relationship Specialty Start Date End Date aKrina Rodarte MD [address] [place] [phone] PCP - General Family Medicine 05/12/18 documented as of this encounter
--- OUTSIDE RECORDS SUMMARY | 2024-08-04 15:28 | XMS_ITS | Encounter Summary ---
Author Organization [employer] Address [address] [facility] [address] [place] [address] Care Team Providers Care Gas Operation Manager Name Role Phone Karina Rodarte MD Primary Care Provider [phone] Reason for Visit * Reason Onset Date Comments Results 07/29/2024 Medication Question 07/29/2024 Encounter Details Date Type Department Care Team ([facility] st Contact Info) Description 07/29/2024 Refill [facility] [address] [place], [place] [phone] Lyudmila Nava RN [address] [place], [place] [phone] Social History Tobacco Use Types Packs/Day Years Used Date Smoking Tobacco: Never Passive Smoke Exposure: Never Smokeless Tobacco: Never Depression Answer Date Recorded Patient Health Questionnaire-9 Score 11 09/17/2022 Housing Stability Answer Date Recorded What is your housing situation today? I have daciarebekah toth 02/26/[address] you [...] as of this encounter Miscellaneous Notes * Addendum Note - Lyudmila Nava RN - 07/29/2024 12:52 PM EDTAddended by: LYUDMILA NAVA on: 07/29/2024 12:52 PM Modules accepted: Orders * Telephone Encounter - Lyudmila Nava RN - 07/29/2024 12:48 PM EDT Pt walked into green team lobby requesting to speak regarding below message. Informed cholesterol improved but not at goal. Recommended increased rosuvastatin and/or increased dietary improvement andphysical activity. Pt agrees to both. Informed PCP will send increased dose of rosuvastatin to her p harmacy. Advised ot increase fruits, vegetables, whole grains, and physical activity. Decreased fried and processed foods, alcohol, and foods high in simple carbs. Pt verbalized understanding and denied having any further questions or concerns at this time. * Telephone Encounter - Lyudmila Nava RN - 07/29/2024 9:23 AM EDT Telephone call placed to pt regarding below results and options for POC. No answer, left v/m. * Telephone Encounter - Lyudmila Nava RN - 07/29/2024 9:10 AM EDT ----- Message from Karina Rodarte MD sent at 07/28/2024 10:25 PM EDT ----- Please inform her that her cholesterol has improved with rosuvastatin, almost at her goal. Triglyceride is still karolina, but it is not as important as cholesterol level in terms of cardiovascular health. Please ask her which one she prefers: 1. Increase rosuvastatin dose; 2. Continue working on lifestyle modifications with the current rosuvastatin dose; 3. Both. My recommendation is 3, however, she developed adverse reaction to atorvastatin (hence changed to rosuvastatin). Therefore, her hesitancy to the higher medication dose is understandable. Please queue rosuvastatin 10 mg if patient agrees. Thank you. documented in this encounter Plan of Treatment Upcoming Encounters Date Type Department Care Team (Late st Contact Info) Description 08/10/2024 2:30 PM EDT Clinical Support [facility] [address] [place] [phone] documented as of this encounter Visit Diagnoses Not on filedocumented in this encounter Additional Health Concerns Assessment Noted Time PHQ-9 Depression Total Score: 11 023 2:16 PM EDT documented as of this encounter Care Teams Gas Operation Manager Relationship Specialty Start Date End Date Karina Rodarte MD [address] [place] [phone] PCP - General Family Medicine 05/12/18 documented as of this encounter
--- OUTSIDE RECORDS SUMMARY | 2024-08-04 15:28 | XMS_ITS | Encounter Summary ---
Author Organization [employer] [facility] Address [address] [facility] 7t [place] [address] Care Team Providers Care Manager Stylist Name Role Phone Karina Rodarte MD Primary Care Provider [phone] Encounter Details Date Type Department Care Team (Latest Contact Info) Description 10/24/2021 Abstract [facility] Dental, Provider, DDS Social History Tobacco Use Types Packs/Day Years Used Date Smoking Tobacco: Never Assessed Comments Unknown Sex and Gender Information Value Date Recorded Sex Assigned at Female 03/11/2022 10:14 AM EDT Legal Sex Female 10:14 AM EDT Gender Identity Female 03/11/2022 10:14 AM EDT Sexual Orientation Straight 03/11/2022 10 :14 AM EDT documented as of this encounter Plan of Treatment Upcoming Encounters Date Type Department Care Team ( st Contact Info) Description 08/10/2024 2:30 PM EDT Clinical Support [facility] [address] [place] [address] documented as of this encounter Visit Diagnoses Not on filedocumented in this encounter Care Teams Manager Stylist Relationship Specialty Start Date End Date Karina Rodarte MD [address] [place] [address] PCP - General Family Medicine 05/12/18 documented as of this encounter
--- OUTSIDE RECORDS SUMMARY | 2024-08-04 15:28 | XMS_ITS | Encounter Summary ---
Author Organization [employer] Address [address] [facility] 7t [place] [address] Care Team Providers Care Electrical Manufacturing Technician Name Role Phone Karina Rodarte MD Primary Care Provider [phone] Encounter Details Date Type Department Care Team (Late st Contact Info) Description 07/19/2024 3:45 PM EDT Office Visit [facility] MEDICINE [address], [place] [phone] Karina Rodarte MD [address] [place], [place] [phone] Primary hypertension (Primary Dx); Osteoporosis without current pathological fracture, unspecified osteoporosis type; Bilateral malignant neoplasm of breast in female, estrogen receptor positive, unspecified site of breast (CMS/HCC); Mixed anxiety and depressive disorder; Impaired fasting glucose; Dietary counseling; Exercise counseling; Class 1 obesity due to excess calories with serious comorbidity and body mass index (BMI) of 30.0 to 30.9 in adult Social History Tobacco Use Types Packs/Day Years [...] AM EDT documented as of this encounter Last Filed Vital Signs Vital Sign Reading [...] Mass Index 30.78 07/19/2024 4:09 PM EDT documented in this encounter Progress Notes * Karina Rodarte MD - 07/19/2024 3:45 PM EDT Subjective Liz Martell is a 64 y.o. female who has hypertension, breast cancer, prediabetes, and osteoporosis, and patient presents for follow up of chronic conditions. Background: Our last encounter was 09/01/2023. She was having allergy symptoms and vertigo. Switched simvastatinto atorvastatin. Interval history: She reported that atorvastatin caused rash. Switched back to simvastatin. Patient reported reactionto simvastatin. Switched to rosuvastatin. She was seen in the walk-in clinic in September 2023 for rash on upper abdomen. Attributed to a new bra /irritant dermatitis. Rx triamcinolone cream. She was seen in the walk-in clinic on 12/09/23 for vaginal itching. Clinical Dx for UTI. Rx TMP/SMX.Urine culture is not available. BV panel and GC/Chlam were negative. Seen by community service aide on 04/21/24 for osteoporosis. She completed 5 years of bisphosphonate therapy. Completing secondary work-up by checking TSH, FT4, VitD, SPEP, urine immunofixation, 24 hr urinefor calcium and creatinine, and urine N- telopeptide. Ensure 1200 mg Ca and Vit D supplementation. Consider giving a drug holiday. Mammo on 05/25/24. Left mastectomy. Right side. BIRADS 2. Seen by Dr. Pham, oncologist, on 06/02/24 for follow up of bilateral breast cancer. Today: Pt reports her eyes are doing well. Pt checks her BP at home and she states the number is usually around 134-135. She confirms she takes her medication every day, only Lisinopril for her BP and Rosuvastin for her cholesterol. She notesshe takes anxiety medication, allergy medication, medication for her bones, at times she will take medication for her stomach, and she has an inhaler. She takes Iron supplements which she requests a refill of. Pt denies having any palpitations. Pt agrees to get her bloodwork done today, but declines any vaccines. She notes she has an appointment with her community service aide on the july, and she has to do alab for the community service aide as well. She wants to get all the blood work she needs to get done at the same time. Review of Systems Constitutional: Negative for activity change, appetite change and fever. Respiratory: Negative for shortness of breath. Cardiovascular: Negative for chest pain. Objective Vitals: 07/19/24 1609 07/19/24 1645 BP: (!) 151/76 (!) 148/80 Pulse: 94 Resp: 15 Temp: 97 ??F (36.1 ??C) TempSrc: Temporal SpO2: 97% Weight: 162 lb (73.5 kg) Height: 5' 0.83 (1.545 m) Physical Exam Constitutional: General: She is not in acute distress. Appearance: Normal appearance. She is not ill-appearing. HENT: Head: Normocephalic and atraumatic. Mouth/Throat: Mouth: Mucous membranes are moist. Eyes: Extraocular Movements: Extraocular movements intact. Pupils: Pupils are equal, round, and reactive to light. Cardiovascular: Rate and Rhythm: Normal rate and regular rhythm. Heart sounds: No murmur heard. Pulmonary: Effort: Pulmonary effort is normal. No respiratory distress. Breath sounds: Normal breath sounds. No wheezing or rhonchi. Skin: General: Skin is warm. Neurological: Mental Status: She is alert. Mental status is at baseline. Psychiatric: Mood and Affect: Mood normal. Results: Lab Results Component Value Date NA 140 05/06/2023 K 4.4 05/06/2023 CL 107 05/06/2023 CO2 24 05/06/2023 BUN 15 05/06/2023 CREATININE 0.80 05/06/2023 EGFR >60 05/06/2023 GLUCOSE 92 05/06/2023 TOTALBILIRUB 0.5 05/06/2023 AST 19 05/06/2023 ALT 9 05/06/2023 TOTPROTEIN 8.2 (H) 05/06/2023 ALB 4.2 05/06/2023 ALP 73 05/06/2023 Lab Results Component Value Date TRIG 157 (H) 05/06/2023 CHOL 198 05/06/2023 LDLCHOLCAL 116 (H) 05/06/2023 HDL 51 05/06/2023 Lab Results Component Value Date HGBA1C 5.7 05/06/2023 Lab Results Component Value Date WBC 6.8 02/25/2022 HGB 11.5 (L) 02/25/2022 The 10-year ASCVD risk score (Mingo COLEMAN, et al., 2019) is: 11.2% Values used to calculate the score: Age: 64 years Sex: Female Is Non- : No Diabetic: No Tobacco smoker: No Systolic Blood Pressure: 148 mmHg Is BP treated: Yes HDL Cholesterol: 51 mg/dL Total Cholesterol: 198 mg/dL Assessment/Plan Problem List Items Addressed This Visit Hypertension - Primary -Goal BP < 150/90 per JNC-8 ; Goal BP <130/80 per AHA/ACC -BP elevated today -Continue working on life style modifications -Continue lisinopril 10 mg daily. -Check home BP -Ordered lab on 07/19/24 Relevant Orders Comprehensive Metabolic Panel Lipid Panel with Reflex to Direct LDL Albumin, Random Urine W/Creatinine Impaired fasting glucose -07/21/20 A1C 6.0% -06/04/21 A1C 5.9% -05/21/22 A1C 5.9% -05/06/23 A1C 5.7%, improving -Continue working on lifestyle modifications -Annual screening - Ordered Hemoglobin A1c 07/19/24 Relevant Orders Hemoglobin A1c Breast cancer (CMS/HCC) [place] [facility] [place] -Most recent imaging: Mammo on 03/11/23 BI-RADS 2 -Continue Arimidex. Diagnosis / History: 1. 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 Dx in 1996. 2. Recurrence in 1998. 3. 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 ER/WA positive. Her-2/Richie positive. Dxin 2005 Stage T1. 4. Recurrence of right [...] Continue current treatment plan by Dr. Pham Mixed anxiety and depressive disorder - continue current treatment with [facility] - continue sertraline and hydroxyzine - treatment history: Clonazepam was discontinued due to dizziness Osteoporosis - DEXA in Feb 2016 showed osteopenia - Completed 5 year of alednronate treatment course in Apr 2021. - Most recent DEXA on 03/11/23 showed worsening bone density, -2.5 in lumbar spine and -2.1 in hip - Seen by community service aide on 04/21/24. Ordered secondary work-up. Continue calcium and vitamin D supplementation. Drug holiday at this time. - Continue weight bearing exercise - Upcoming appointment with community service aide this month Other Visit Diagnoses Dietary counseling Exercise counseling Class 1 obesity due to excess calories with serious comorbidity and body mass index (BMI) of 30.0 to 30.9 in adult Allergies Allergen Reactions Chlorthalidone Other reaction(s): chest tight,leg spasm,constipati Omeprazole Current Outpatient Medications Medication Instructions albuterol (Ventolin HFA) 108 (90 Base) MCG/ACT inhaler INHALE 2 PUFFS BY INHALATION EVERY 4-6 HOURSAS NEEDED alendronate (FOSAMAX) 70 mg, Oral, Every 7 days, Take in the morning with a full glass of water, gil empty stomach, and do not take anything else by mouth or lie down for the next 30 min. amLODIPine-olmesartan (Stew) 5-20 MG tablet 1 tablet, Oral, Daily brimonidine (AlphaGAN P) 0.2 % ophthalmic solution 1 drop, Both Eyes, 3 times daily cromolyn (Opticrom) 4 % ophthalmic solution 1 drop, Both Eyes, 4 times daily, Affected eyes famotidine (Pepcid) 20 MG tablet TOME 1 TABLETA POR VIA ORAL DOS VECES AL REDD EN LA MANANA Y AL ACOSTARSE CUANDO SEA NECESARIO ferrous sulfate 325 (65 Fe) MG tablet TAKE 1 TABLET BY MOUTH EVERY DAY fluticasone (Flonase) 50 MCG/ACT nasal spray SPRAY 1 SPRAY INTO EACH NOSTRIL EVERY DAY hydrocortisone 2.5 % cream Apply pea sized amount to skin bid for 1 week hydrOXYzine pamoate (Vistaril) 25 MG capsule TOME 1 CAPSULA POR VIA ORAL CADA DOCE HORAS CUANDO SEANECESARIO PARA LA ANSIEDAD latanoprost (Xalatan) 0.005 % ophthalmic solution 1 drop, Both Eyes, Nightly, Affected eyes loratadine (Claritin) 10 MG tablet TAKE 1 TABLET BY MOUTH EVERY DAY meclizine (Antivert) 25 MG tablet TAKE 1 TABLET BY MOUTH THREE TIMES A DAY IF NEEDED FOR VERTIGO montelukast (Singulair) 10 MG tablet TOME ANETA TABLETA TODOS LOS DURANT AT NOCHE pantoprazole (PROTONIX) 40 mg, Oral, Daily before breakfast, Do not crush, chew, or split. rosuvastatin (CRESTOR) 5 mg, Oral, Daily sertraline (Zoloft) 100 MG tablet 2 tablets, Oral, Once Daily traZODone (Desyrel) 50 MG tablet Take 1/2 to 1 tablet by mouth at bedtime as needed for sleep triamcinolone (Kenalog) 0.1 % cream Topical, 2 times daily PRN Follow-up: 3 months or sooner if any problem arises. Scribe Attestation: Maritza Marques, am serving as a scribe to document services personally performed by Karina Rodarte MD, based on the patient's response to questions by provider and provides statements to me. documented in this encounter Miscellaneous Notes * Assessment & Plan Note - Maritza Medina MA - 07/20/2024 2:26 AM EDTAssociated Problem(s): Mixed anxiety and depressive disorder - continue current BH treatment with [facility] - continue sertraline and hydroxyzine - treatment history: Clonazepam was discontinued due to dizziness * Assessment & Plan Note - Maritza Medina MA - 07/20/2024 2:26 AM EDTAssociated Problem(s): Breast cancer (CMS/HCC) [place] [facility] [place] -Most recent imaging: Mammo on 03/11/23 BI-RADS 2 -Continue Arimidex. Diagnosis / History: 1. 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 Dx in 1996. 2. Recurrence in 1998. 3. 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 ER/WA positive. Her-2/Richie positive. Dxin 2005 Stage T1. 4. Recurrence of right [...] Continue current treatment plan by Dr. Pham * Assessment & Plan Note - Maritza Medina MA - 07/20/2024 2:26 AM EDTAssociated Problem(s): Impaired fasting glucose -07/21/20 A1C 6.0% -06/04/21 A1C 5.9% -05/21/22 A1C 5.9% -05/06/23 A1C 5.7%, improving -Continue working on lifestyle modifications -Annual screening - Ordered Hemoglobin A1c 07/19/24 * Assessment & Plan Note - Maritza Medina MA - 07/20/2024 2:25 AM EDTAssociated Problem(s): Osteoporosis - DEXA in Feb 2016 showed osteopenia - Completed 5 year of alednronate treatment course in Apr 2021. - Most recent DEXA on 03/11/23 showed worsening bone density, -2.5 in lumbar spine and -2.1 in hip - Seen by community service aide on 04/21/24. Ordered secondary work-up. Continue calcium and vitamin D supplementation. Drug holiday at this time. - Continue weight bearing exercise - Upcoming appointment with community service aide this month * Assessment & Plan Note - Maritza Medina MA - 07/20/2024 2:25 AM EDTAssociated Problem(s): Hypertension -Goal BP < 150/90 per JNC-8 ; Goal BP <130/80 per AHA/ACC -BP elevated today -Continue working on life style modifications -Continue lisinopril 10 mg daily. -Check home BP -Ordered lab on 07/19/24 documented in this encounter Plan of Treatment Upcoming Encounters Date Type Department Care Team (Late st Contact Info) Description 08/10/2024 2:30 PM EDT Clinical Support [facility] MEDICINE [address] [place] [address] Scheduled Orders Name Type Priority Associated Diagnoses Orde r Schedule Albumin, Random Urine W/Creatinine Lab Routine Primary hypertension Expected: 07/19/2024 (Approximate), Expires: 07/18/2025 documented as of this encounter Procedures Procedure Name Priority Date/Time Associated Diagnosis Comments LIPID PANEL WITH REFLEX TO DIRECT LDL Routine 07/28/2024 2:00 PM EDT Primary hypertension HEMOGLOBIN A1C Routine 07/28/2024 2:00 PM EDT Impaired fasting glucose COMPREHENSIVE METABOLIC PANEL Routine 07/28/2024 2:00 PM EDT Primary hypertension documented in this encounter Results * (ABNORMAL) Lipid Panel with Reflex to Direct LDL (07/28/2024 2:00 PM EDT) Triglycerides 215(H) <150 mg/dL [facility] Comment:Desirable Triglyceri de: less than 150 mg/dLBorderline High Triglyceride 150-199 mg/dLHigh Triglyceride: 200-499 mg/dLVery High Triglyceride: greater than or equal to 5OO mg/dL Cholesterol 185 <200 mg/dL [facility] Comment:Desirable Cholestero l: less than 200 mg/dLBorderline High Cholesterol: 200-239 mg/dLHigh Cholesterol: greater than 239 mg/dL LDL Cholesterol Calculated 82 <100 mg/dL [facility] Comment:Desirable LDL: less than 100 mg/dLNear Optimal/Above Optimal LDL: 110- 129 mg/dLBorderline High LDL: 130-159 mg/dLHigh LDL: 160-189 mg/dLVery High LDL: greater than or equal to 190 mg/dL HDL Cholesterol 60 >40 mg/dL [facility] Comment:Desirable HDL: great er than 40 mg/dL Note: This HDL assay may give artificially low results in patients with liver disease. Blood 07/28/2024 2:00 PM EDT 07/28/2024 2:00 PM EDT us Karina Rodarte MD LAB BLOOD ORDERABLES Final Resul t [facility] [address] [place] [phone] * (ABNORMAL) Comprehensive Metabolic Panel (07/28/2024 2:00 PM EDT) Sodium 139 135 - 145 mmol/L [facility] Potassium 4.0 3.3 - 5.1 mmol/L [facility] Chloride 105 96 - 108 mmol/L [facility] Carbon Dioxide 27 22 - 29 mmol/L [facility] Anion Gap 11(L) 12 - 20 [facility] Urea Nitrogen (BUN) 16 9 - 16 mg/dL [facility] Creatinine, Serum 0.79 0.5 - 1.4 mg/dL [facility] Estimated Glomerular Filt Rate >60 [facility] Comment:Chronic Kidney Disea se: Estimated GFR < 60 mL/min/[id number] Kidney Disease: Estimated GFR < 15 mL/min/1.73m2 Glucose 77 60 - 115 mg/dL [facility] Calcium 9.7 8.4 - 10.2 mg/dL [facility] Bilirubin, Total 0.3 0.0 - 1.0 mg/dL [facility] Aspartate Amino Transferase 17 5 - 31 U/L [facility] Alanine Aminotransferase 15 0 - 31 U/L [facility] Total Protein 8.6(H) 6.5 - 8.0 g/dL [facility] Albumin Level 4.4 3.5 - 5.0 g/dL [facility] Alkaline Phosphatase 60 39 - 117 U/L [facility] Blood Venous blood specimen / Unknown 07/28/2024 2:00 PM EDT 07/28/2024 2:00 PM EDT Karina Rodarte MD LAB BLOOD ORDERABLES Final Resul t Performing Organization Address [facility] Co de Phone Number [facility] [address] [place] [phone] * Hemoglobin A1c (07/28/2024 2:00 PM EDT) Hemoglobin A1c 5.8 <6.0 % [facility] Comment:Hemoglobin A1C Refer ence Range Adults: 4.8 - 6.0 % Non diabetic: < 6.0 % Goal: < 7.0 %Additional Action Suggested: > 8.0 %Note: Hemoglobin A1c results are invalid for patients with abnormal amounts of HbF. Blood transfusions may impact the HbA1c concentration in the patient sample. Estimated Average Glucose 120 mg/dL [facility] Comment:eAG = Estimated ave rage glucose which is %A1C expressed asaverage glucose, using the formula of the M7N-[id number] Glucose study (ADAG), Diabetes Care, Vol.31,#8,Dec. 2007 Blood Venous blood specimen / Unknown 07/28/2024 2:00 PM EDT 07/28/2024 2:00 PM EDT Karina Rodarte MD LAB BLOOD ORDERABLES Final Resul t Performing Organization Address City/[facility]/ZIP Co de Phone Number [facility] [address] [place] [phone] documented in this encounter Visit Diagnoses Diagnosis Primary hypertension- Primary Unspecified essential hypertension Osteoporosis without current pathological fracture, unspecified osteoporosis type Bilateral malignant neoplasm of breast in female, estrogen receptor positive, unspecified site of breast (CMS/HCC) Mixed anxiety and depressive disorder Dysthymic disorder Impaired fasting glucose Dietary counseling Dietary surveillance and counseling Exercise counseling Class 1 obesity due to excess calories with serious comorbidity and body mass index (BMI) of 30.0 to 30.9 in adult documented in this encounter Additional Health Concerns Assessment Noted Time PHQ-9 Depression Total Score: 11 023 2:16 PM EDT documented as of this encounter Care Teams Electrical Manufacturing Technician Relationship Specialty Start Date End Date Karina Rodarte MD [address] [place] [phone] PCP - General Family Medicine 05/12/18 documented as of this encounter
--- OUTSIDE RECORDS SUMMARY | 2024-08-04 15:28 | XMS_ITS | Encounter Summary ---
Author Organization [employer] Address [address] [place] [address] 7[address] [place] [address] Care Team Providers Care Weighbridge Operator Name Role Phone Karina Rodarte MD Primary Care Provider [phone] Encounter Details Date Type Department Care Team (Late st Contact Info) Description 10/24/2022 Orders Only [facility] MEDICINE [address] [place] [phone] Karina Rodarte MD [address] [place] [address] [phone] Sleep disturbance (Primary Dx) Social History Tobacco Use Types Packs/Day Years Used Date Smoking Tobacco: Never Passive Smoke Exposure: Never Smokeless Tobacco: Never Depression Answer Date Recorded Patient Health Questionnaire-9 Score 11 09/17/2022 Depression Answer Date Recorded Patient Health Questionnaire-2 Score 6 09/17/2022 Comments Unknown Sex and Gender Information Value [...] Description 08/10/2024 2:30 PM EDT Clinical Support [facility] [address] [place] [phone] documented as of this encounter Visit Diagnoses Diagnosis Sleep disturbance- Primary Unspecified sleep disturbance documented in this encounter Additional Health Concerns Assessment Noted Time PHQ-9 Depression Total Score: 11 023 2:16 PM EDT documented as of this encounter Care Teams Weighbridge Operator Relationship Specialty Start Date End Date Karina Rodarte MD [address] [place] [phone] PCP - General Family Medicine 05/12/18 documented as of this encounter
--- OUTSIDE RECORDS SUMMARY | 2024-08-04 15:28 | XMS_ITS | Encounter Summary ---
Author Organization [employer] Address [address] [place] [address] [address] [place] [address] Care Team Providers Care Special Education Science Teacher Name Role Phone Karina Rodarte MD Primary Care Provider [phone] Reason for Visit * Reason Onset Date Comments requesting a call back 05/23/2022 Encounter Details Date Type Department Care Team ([facility] st Contact Info) Description 05/23/2022 Telephone [facility] MEDICINE [address] [place] [phone] Karina Rodarte MD [address] [place], [place] [phone] requesting a call back Social History Tobacco Use Types Packs/Day Years [...] PM EST documented as of this encounter Miscellaneous Notes * Telephone Encounter - Wali Clarke - 05/23/2022 10:34 AM EST Tc from pt returning call. Pt is requesting a call back Please contact pt at [phone] documented in this encounter Plan of Treatment Upcoming Encounters Date Type Department Care Team (Late st Contact Info) Description 08/10/2024 2:30 PM EDT Clinical Support [facility] MEDICINE [address] [place] [address] documented as of this encounter Visit Diagnoses Not on filedocumented in this encounter Care Teams Special Education Science Teacher Relationship Specialty Start Date End Date Karina Rodarte MD [address] [place] [phone] PCP - General Family Medicine 05/12/18 documented as of this encounter
--- OUTSIDE RECORDS SUMMARY | 2024-08-04 15:28 | XMS_ITS | Encounter Summary ---
Author Organization [email or web address] [facility] Address [address] [facility] [address]t [place] [address] Care Team Providers Care Rubber Printing Machine Operator Name Role Phone Karina Rodarte MD Primary Care Provider [phone] Encounter Details Date Type Department Care Team (Latest Contact Info) Description 06/29/2019 Abstract [facility] CONVERSIONS Dental, Provider, DDS Social History [...] 2:30 PM EDT Clinical Support [facility] MEDICINE [address] [place] [address] documented as of this encounter Visit Diagnoses Not on filedocumented in this encounter Care Teams Rubber Printing Machine Operator Relationship Specialty Start Date End Date Karina Rodarte MD [address] [place] [address] PCP - General Family Medicine 05/12/18 documented as of this encounter
== END 2024-08-04 13:35 | disposition home or self-care (01) ==
LOC: HO.ENCR 13:01
PROVIDERS: PCP Family Medicine; Visit Provider Internal Medicine Endocrinology, Diabetes & Metabolism
DX: M81.0 Age-related osteoporosis without current pathological fracture (principal)
CPT/HCPCS: 99213

== ENCOUNTER → 2024-08-04 13:00 | Outpatient (BNVA) | payer MEDICARE, SELFPAY | PROVIDERS: PCP Family Medicine; Visit Provider Internal Medicine Endocrinology, Diabetes & Metabolism | DX: M81.0 Age-related osteoporosis without current pathological fracture (principal) | CPT/HCPCS: 99212 ==

== ENCOUNTER 2024-10-01 10:32 | Outpatient (REF) | payer MEDICARE, MEDICAID, SELFPAY ==
--- OUTSIDE RECORDS SUMMARY | 2024-10-01 10:38 | XMS_ITS | Encounter Summary ---
Author Organization [employer] Address [address] [facility] [address]t [place] [address] Care Team Providers Care Boom Master Name Role Phone Karina Rodarte MD Primary Care Provider [phone] Reason for Visit * Reason Comments Med Refill Encounter Details Date Type Department Care Team ([facility] st Contact Info) Description 02/23/2024 Refill [facility] MEDICINE [address] [place], [place] [phone] Karina Rodarte MD [address] [place] [address] Heartburn Social History Tobacco Use Types Packs/Day [...] as of this encounter Plan of Treatment Not on file documented as of this encounter Visit Diagnoses Diagnosis Heartburn documented in this encounter Additional Health Concerns Assessment Noted Time PHQ-9 Depression Total Score: 11 023 2:16 PM EDT documented as of this encounter Care Teams Boom Master Relationship Specialty Start Date End Date Karina Rodarte MD [address] [place] [phone] PCP - General Family Medicine 05/12/18 documented as of this encounter
[2024-10-01 13:30] LABS: MANUAL DIFF FLAG NO
[2024-10-01 13:36] LABS: Basophils Percent Auto 0.8 % (0-2); Eosinophils Absolute Auto 0.2 X10*3/uL (0.0-0.4); Eosinophils Percent Auto 3.2 % (0-4); Hematocrit 37.5 % (37.0-47.0); Hemoglobin 11.9 g/dl (12.0-16.0); Imm Gran Abs Auto 0.01 X10*3/uL (0.00-0.03); Imm Gran Pct Auto 0.2 % (0.0-0.4); Lymphocytes Absolute Auto 1.8 X10*3/uL (1.2-4.9); Lymphocytes Percent Auto 35.7 % (20-40); Mean Corpuscular HGB Conc 31.7 g/dl (31.0-35.0); Mean Corpuscular Hemoglobin 28.9 pg (27.0-33.0); Mean Platelet Volume 10.1 fL (9.4-12.3); Monocytes Absolute Auto 0.4 X10*3/uL (0.1-1.2); Monocytes Percent Auto 8.5 % (2-11); Neutrophils Absolute Auto 2.5 x10*3/uL (2.0-8.3); Neutrophils Percent Auto 51.6 % (45-73); Platelet Count 252 X10*3/uL (160-400); Red Blood Count 4.12 X10*6/uL (4.20-5.50); White Blood Count 4.9 X10*3/uL (4.8-10.8)
[2024-10-01 14:10] LABS: Alanine Aminotransferase 15 U/L (0-31); Albumin Level 4.3 g/dL (3.5-5.0); Alkaline Phosphatase 58 U/L (39-117); Anion Gap 12 (12-20); Aspartate Amino Transferase 19 U/L (5-31); Bilirubin Total 0.3 mg/dL (0.0-1.0); Blood Urea Nitrogen 11 mg/dL (9-16); Calcium 9.1 mg/dL (8.4-10.2); Carbon Dioxide 27 mmol/L (22-29); Chloride 108 mmol/L (96-108); Estimated Glomerular Filt Rate > 60; Glucose Random 85 mg/dL (60-115); Potassium 3.9 mmol/L (3.3-5.1); Sodium 143 mmol/L (135-145); Total Protein 7.6 g/dL (6.5-8.0)
[2024-10-01 14:31] LABS: Thyroid Stimulating Hormone 3.26 uIU/mL (0.32-4.0); Vitamin D 25-OH Total 39.3 ng/mL (>30)
[2024-10-07 11:09] LABS: Prot Elec - Albumin 4.1 g/dL (3.8-4.8); Prot Elec - Alpha1 0.3 g/dL (0.2-0.3); Prot Elec - Alpha2 0.8 g/dL (0.5-0.9); Prot Elec - Beta 1 0.5 g/dL (0.4-0.6); Prot Elec - Beta 2 0.5 g/dL (0.2-0.5); Prot Elec - Gamma 1.3 g/dL (0.8-1.7); Prot Elec - Total Protein 7.4 g/dL (6.1-8.1)
== END 2024-10-01 10:33 | disposition home or self-care (01) ==
LOC: HO.HHCL 10:32
PROVIDERS: Internal Medicine Endocrinology, Diabetes & Metabolism; Visit Provider Internal Medicine Medical Oncology
DX: C50.911 Malignant neoplasm of unspecified site of right female breast (principal); C50.912 Malignant neoplasm of unspecified site of left female breast; M81.0 Age-related osteoporosis without current pathological fracture
CPT/HCPCS: 36415; 80053; 82306; 84165; 84439; 84443; 85025; 86335

== ENCOUNTER 2025-01-12 13:45 | Outpatient (AMB) | payer MEDICARE, MEDICAID, SELFPAY ==
--- NOTE | 2025-01-12 13:53 | MHC.OFFVIS ---
Vital Signs 01/12/25 13:57 Height 5 ft 0.55 in Weight 157 lb 10.088 oz BMI 30.2 BP 114/56 L Blood Pressure Location Rt brachial Position Sitting Pulse 86 Pulse Source Pulse Oximeter Pulse Oximetry (%) 96 Oxygen Delivery Method Room Air Intake Visit Reasons: Osteoporosis Intake Note: Patient present today for Osteoporosis follow up. Electric Motor Tester Required: Yes Electric Motor Tester Language: Director Of Outpatient Services Services: Electric Motor Tester Present Electric Motor Tester [facility] Information Interpreted: non-clinical & clinical Accompanied by: Self / Same As Patient Allergies chlorthalidone (CHLORTHALIDONE) Allergy (Unknown, Verified 01/12/25 13:58) UNKNOWN omeprazole (From Prilosec) Allergy (Unknown, Verified 01/12/25 13:58) TONGUE NUMBNESS Medication List - Last Reconciled 01/12/25 by Vladislav Clifton MD albuterol sulfate 90 mcg/actuation (ProAir HFA) 2 puffs inhalation Q4-6H PRN alendronate 70 mg PO QWEEK cholecalciferol (vitamin D3) 500 mcg PO DAILY clonazepam 1 mg PO BID escitalopram oxalate 5 mg PO DAILY famotidine 20 mg PO DAILY ferrous sulfate 325 mg PO DAILY hydroxyzine pamoate 25 mg PO TID latanoprost 0.005% 1 drp ophthalmic (eye) DAILY lisinopril 20 mg PO DAILY loratadine 10 mg PO DAILY meclizine 25 mg PO TID PRN montelukast 10 mg PO BEDTIME pantoprazole 40 mg PO QAM sertraline 200 mg PO DAILY simvastatin 20 mg PO BEDTIME trazodone 50 mg PO BEDTIME PRN HPI Comments Details: 64 YO Female is seen in consultation at the request of PCP for Osteoporosis. First diagnosed in many yrs ago .Never saw specialist before Received treatment in the past with alendronate , from 2018 to 2023 . Tolerated treatment well without complication. Currently on alendronate No history of pathologic fracture or ONJ. Has several servings of dietary calcium per day . Not Takes Calcium supplement mg daily in divided doses. Takes ?1200 IU of Vitamin D daily. Denies ever using PPI, anticoagulant, antiepileptic or glucocorticoid medication. 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 UTD on dental cleanings and sees dentist every 6 months. No planned upcoming dental work or extractions. DXA dated 03/11/23:FINDINGS: LEFT FEMUR, NECK: Current: BMD 0.741 g/cm2, Z-score -0.7, T-score -2.1, osteopenia. Prior: BMD 0.798 g/cm2. Baseline: BMD 0.902 g/cm2. LEFT FEMUR, TOTAL: Current: BMD 0.743 g/cm2, Z-score -1.0, T-score -2.1, osteopenia, 5.1% decrease from previous, 17.1% decrease from baseline (<5% change is not significant). Prior: BMD 0.783 g/cm2. Baseline: BMD 0.896 g/cm2. AP SPINE L1-L4: Current: BMD 0.877 g/cm2, Z-score -1.0, T-score -2.5, osteoporosis, 0.8% decrease from previous, 19.1% decrease from baseline (<5% change is not significant). Prior: BMD 0.884 g/cm2. Baseline: BMD 1.084 g/cm2. IDENTIFIED RISK FACTORS: Menopause. HISTORY OF FRACTURE: None listed. MEDICATIONS: Bisphosphonate. MM/XR DEXA axial skeleton IMPRESSION: 1. DIAGNOSIS: Osteoporosis based on the lowest T-score value of -2.5 in the lumbar spine applying World Health Organization criteria. Labs: secondary w/u - . Urine NTX pending [facility] Medical History Vertigo Allergic rhinitis HLD (hyperlipidemia) GERD (gastroesophageal reflux disease) HTN (hypertension) Anxiety and depression Hx of radiation therapy Invasive carcinoma of breast Surgical History History of cataract surgery Hx of lumpectomy Family History Other No family history of cancer Social History Household Members: Spouse Housing: House Are you a primary daycare manager to a significant other at home: No Do you presently have visiting nurse or other home services: No Alcohol intake: former Patient Tobacco Use Status: Never used Tobacco Second Hand Smoke Exposure: No service: No Current occupational status: disabled Female Reproductive History Menstrual Age of Menarche: 8 Physical Exam Vital Signs: Last Vital Signs Pulse 86 01/12/25 13:57 BP 114/56 L 01/12/25 13:57 Pulse Ox 96 01/12/25 13:57 Oxygen Delivery Method Room Air 01/12/25 13:57 BMI result Body Mass Index 30.2 Assessment & Plan Assessment & Plan (1) Osteoporosis: Code(s): M81.0 - Age-related osteoporosis without current pathological fracture Category: Medical Plan: 1.osteoporosis evaluation: Secondary w/u negative .Pt on alendronate. Was on alendronate for 5 years Continuation of calcium and vitamin D supplements is indicated. Will have pt hold alendronate. We will check urine NTX and repeat DEXA. If DEXA stable and urine NTX is suppressed will continue off alendronate. If DEXA has declined or urine NTX is elevated may reinitiate the alendronate Orders: Orders XR DEXA axial skeleton 1 Month M81.0 - Age-related osteoporosis without current pathological fracture Coding Level of Care Code Est Pt Level 3 (27243) Diagnoses Osteoporosis M81.0
[2025-01-12 13:57] VITALS: BP 114/56; PULSE 86; O2SAT 96; BMI 30.2
--- OUTSIDE RECORDS SUMMARY | 2025-01-12 15:55 | XMS_ITS | Patient Health Record ---
Author Organization [facility] Address [address] [place] [address] Care Team Providers Care Java Android Developer Name Role Phone Aster GOMEZ, Karina Primary Care Provider Unavailabl e [place] Sampson Jr Unavailable [phone] Melody Pham Unavailable Unavailable Reason For Referral [...] Problem Status W/U Status Risk Notes Problem [id number] Colon cancer screening (Z12.11) Active confirmed Plan Of Treatment Future Test Test Name Order Date COLONOSCOPY 11/10/2020 Insurance Providers Payer Name Payer Address Payer Phone Subscriber Number Group Number Insured Name Patient Relationship to Insured Coverage Start Date Coverage End Date [facility] [address] [place] [address] [id number] RIMA COLLIER Self - patient is the insured Medical (General) History Medical History History ICD Code Anxiety/depression hypertension GERD breast cancer 1996,1998, 2015 /3 times Elevated cholesterol Allergic rhinitis Surgical History Surgery Date(Month/Year) mastectomy lumpectomy
--- OUTSIDE RECORDS SUMMARY | 2025-01-12 15:55 | XMS_ITS | Encounter Summary ---
Author Organization [employer] Address [address] [facility] 7[address] [place] [address] Care Team Providers Care General Counselor Name Role Phone Karina Rodarte MD Primary Care Provider Reason for Visit * Reason Comments Med Refill Encounter Details Date Type Department Care Team ([facility] st Contact Info) Description 10/14/2024 Refill [facility] [address] [place], [place] [phone] Karnia Rodarte MD [address] [place], [place] [phone] Other osteoporosis without current pathological fracture Social History Tobacco Use Types Packs/Day Years [...] as of this encounter Visit Diagnoses Diagnosis Other osteoporosis without current pathological fracture documented in this encounter Additional Health Concerns Assessment Noted Time PHQ-9 Depression Total Score: 11 023 2:16 PM EDT documented as of this encounter Care Teams General Counselor Relationship Specialty Start Date End Date Karina Rodarte MD [address] [place] [phone] PCP - General Family Medicine 05/12/18 documented as of this encounter
--- OUTSIDE RECORDS SUMMARY | 2025-01-12 15:55 | XMS_ITS | Encounter Summary ---
Author Organization [employer] Address [address] [place] [address] 7[address] [place] [address] Care Team Providers Care Technical Support Coordinator Name Role Phone Karina Rodarte MD Primary Care Provider [phone] Encounter Details Date Type Department Care Team (Latest Contact Info) Description 10/24/2021 Abstract [facility] Dental, Provider, DDS Social History Tobacco [...] on filedocumented in this encounter Care Teams Technical Support Coordinator Relationship Specialty Start Date End Date Karina Rodarte MD [address] [place] [phone] PCP - General Family Medicine 05/12/18 documented as of this encounter
--- OUTSIDE RECORDS SUMMARY | 2025-01-12 15:55 | XMS_ITS | Encounter Summary ---
Author Organization [employer] Address [address] [place] [address] [address] [place] [address] Care Team Providers Care Finishing Room Supervisor Name Role Phone Karina Rodarte MD Primary Care Provider [phone] Encounter Details Date Type Department Care Team (Latest Contact Info) Description 06/29/2019 Abstract [facility] CONVERSIONS Dental, Provider, DDS Social History Tobacco [...] on filedocumented in this encounter Care Teams Finishing Room Supervisor Relationship Specialty Start Date End Date Karina Rodarte MD [address] [place] [phone] PCP - General Family Medicine 05/12/18 documented as of this encounter
--- OUTSIDE RECORDS SUMMARY | 2025-01-12 15:55 | XMS_ITS | Encounter Summary ---
Author Organization [employer] Address [address] [place] [address] [address] [place] [address] Care Team Providers Care Touch Up Painter Name Role Phone Karina Rodarte MD Primary Care Provider [phone] Encounter Details Date Type Department Care Team (Late st Contact Info) Description 10/24/2022 Orders Only [facility] MED[facility]INE [address] [place], [place] [phone] Karina Rodarte MD [address] [place], [place] [phone] Sleep disturbance (Primary Dx) Social History Tobacco [...] documented as of this encounter Care Teams Touch Up Painter Relationship Specialty Start Date End Date Karina Rodarte MD [address] [place] [address] [phone] PCP - General Family Medicine 1/1/19 documented as of this encounter
--- OUTSIDE RECORDS SUMMARY | 2025-01-12 15:55 | XMS_ITS | Encounter Summary ---
Author Organization [employer] Address [address] [place] [address] 7t [place] [address] Care Team Providers Care Ice Puller Name Role Phone Karina Rodarte MD Primary Care Provider [phone] Reason for Visit * Reason Onset Date Comments requesting a call back 05/23/2022 Encounter Details Date Type Department Care Team ([facility] st Contact Info) Description 05/23/2022 Telephone [facility] MEDICINE [address] [place] [address] [phone] Karina Rodarte MD [address] [place] [address] requesting a call back Social History Tobacco [...] a call back Please contact pt at [phone] documented in this encounter Plan of Treatment Not on file documented as of this encounter Visit Diagnoses Not on filedocumented in this encounter Care Teams Ice Puller Relationship Specialty Start Date End Date Karina Rodarte MD [address] [place] [address] PCP - General Family Medicine 05/12/18 documented as of this encounter
--- OUTSIDE RECORDS SUMMARY | 2025-01-12 15:55 | XMS_ITS | Encounter Summary ---
Author Organization [employer] Address [address] [facility] 7t [place] [address] Care Team Providers Care Finish Repairer Name Role Phone Karina Rodarte MD Primary Care Provider [phone] Reason for Referral * Consultation (Routine) - Closed Specialty Diagnoses / Procedures Referred By Contac t Referred To Contact Endocrinology Diagnoses Osteoporosis without current pathological fracture, unspecified osteoporosis type Karina Rodarte MD [address] [place] [address] Phone: tel: fax: [facility] [address] [place] [address] [place], [place] Phone: tel: fax: Referral ID Status Reason Start Date Expiration Date V isits Requested Visits Authorized [id number] Closed Specialty Services Required 09/07/2023 09/06/2024 1 1 Encounter Details Date Type Department Care Team (Late st Contact Info) Description 09/07/2023 Orders Only [facility] [address] [place] [phone] Karina Rodarte MD [address] [place], [place] [phone] Osteoporosis without current pathological fracture, unspecified osteoporosis [...] as of this encounter Plan of Treatment Scheduled Referrals Name Type Priority Associated Diagnoses [...] documented as of this encounter Care Teams Finish Repairer Relationship Specialty Start Date End Date Karina Rodarte MD [address] [place] [address] PCP - General Family Medicine 05/12/18 documented as of this encounter
--- OUTSIDE RECORDS SUMMARY | 2025-01-12 15:55 | XMS_ITS | Clinical Summary ---
Author Organization [employer] Address [address] [place] [address] 7t [place] [address] Care Team Providers Care Pick Pulling Machine Operator Name Role Phone Karina Rodarte MD Primary Care Provider [phone] Allergies Active Allergy Reactions Criticality Noted Date [...] per day. 30 tablet 11 09/15/19 24 Active hydrocortisone 2.5 % cream Apply pea sized amount to skin bid for 1 week 28.35 g 12/09/19 24 Active albuterol (Ventolin HFA) 108 (90 Base) [...] 30 tablet 11 07/30/19 25 026 Active famotidine (Pepcid) 20 MG tabletIndicatio ns:Heartburn TOME 1 TABLETA POR VIA ORAL DOS VECES AL REDD EN LA MANANA Y AL ACOSTARSE CUANDO SEA NECESARIO 180 tablet 1 09/21/19 25 Active loratadine (Claritin) 10 MG tablet TOME 1 TABLETA POR VIA ORAL TODOS LOS DURANT 90 tablet 1 10/02/19 25 Active fluticasone (Flonase) 50 MCG/ACT nasal sprayIndication s:Allergic rhinitis, unspecified seasonality, unspecified trigger SPRAY 1 SPRAY INTO EACH NOSTRIL EVERY DAY 48 mL 10/15/19 25 Active alendronate (Fosamax) 70 MG tabletIndicatio ns:Other osteoporosis without current pathological fracture TAKE 1 TAB BY MOUTH EVERY 7 DAYS TAKE IN THE MORNING WITH A FULL GLASS OF WATER, ON AN EMPTY STOMACH, AND DO NOT TAKE ANYTHING ELSE BY MOUTH OR LIE DOWN FOR THE NEXT 30 MIN. 12 tablet 12/04/19 25 Active meclizine (Antivert) 25 MG tabletIndicatio ns:Vertigo TAKE 1 TABLET BY MOUTH THREE TIMES A DAY IF NEEDED FOR VERTIGO 30 tablet 12/17/19 25 Active meclizine (Antivert) 25 MG tabletIndicatio ns:Vertigo TAKE 1 TABLET BY MOUTH THREE TIMES A DAY IF NEEDED FOR VERTIGO 30 tablet 10/13/19 25 025 Discontinued(R eorder (will not trigger notification to Pharmacy)) Active Problems Problem Noted Date Diagnosed Date [...] and -2.1 in hip - Seen by shrink pit operator on 04/21/24. Ordered secondary work-up. Continue calcium and vitamin D supplementation. Drug holiday at this time. - Continue weight bearing exercise - Upcoming appointment with shrink pit operator this month Assessment & Plan (09/07/2023 4:45 PM EDT): - DEXA in Feb 2016 showed osteopenia - Completed 5 year of alednronate treatment course in Apr 2021. - Most recent DEXA on 03/11/23 showed worsening bone density, -2.5 in lumbar spine and -2.1 in hip - Will refer to shrink pit operator for another recommendation Assessment & Plan (04/28/2023 [...] - Likely re-start bisphosphonate or refer to shrink pit operator - order DEXA Assessment & Plan (05/24/2022 10:06 AM EST): - DEXA in Feb 2016 showed osteopenia - Started Fosamax 70 mg weekly since Apr 2016. - Recently completed 5 year treatment course in Apr 2021. - Likely re-start bisphosphonate or refer to shrink pit operator - Her oncologist recently ordered DEXA - [...] with negative high-risk HPV - PAP by [facility] SUPPLY CRIB ATTENDANT, Dr. Miller, on 05/18/21 NILM with negative [...] (12/29/2022 6:44 AM EDT): - continue current treatment with RVCC - continue sertraline and hydroxyzine - pt is no longer taking clonazepam Assessment & Plan (05/20/2022 6:00 AM EST): -Oncologist: [facility], last seen on 04/18/22 -Most recent imagin03/07/22 Diagnostic unilateral mammo, Right. BI-RADS 2. Annual mammo. -Continue Arimidex. Diagnosis / History: 1. 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 ER/AK positive. Dx in 1996. 2. Recurrence in 1998. 3. 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 ER/AK positive. Her-2/Richie positive. Dx in 2005 Stage T1. 4. 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 ER/AK positive. Treatment history: 1. AC x 3 [...] & Plan (07/24/2024 6:58 AM EDT): -Oncologist: [facility], last seen in May 2024 -Most recent imaging: Mammo on 03/11/23 BI-RADS 2 -Continue Arimidex. Diagnosis / History: 1. 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 ER/AK positive. Dx in 1996. 2. Recurrence in 1998. 3. 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 ER/AK positive. Her-2/Richie positive. Dx in 2005 Stage T1. 4. 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 ER/AK positive. Treatment history: 1. AC x 3 [...] & Plan (09/07/2023 4:48 PM EDT): -Oncologist: [facility], last seen in May 2023 -Most recent imaging: Mammo on 03/11/23 BI-RADS 2 -Continue Arimidex. Diagnosis / History: 1. 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 ER/AK positive. Dx in 1996. 2. Recurrence in 1998. 3. 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 ER/AK positive. Her-2/Richie positive. Dx in 2005 Stage T1. 4. 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 ER/AK positive. Treatment history: 1. AC x 3 [...] & Plan (04/28/2023 5:46 AM EST): -Oncologist: [facility], last seen on 04/18/22 -Most recent imagin/27/22 Diagnostic unilateral mammo, Right. BI-RADS 2. Annual mammo. -Continue Arimidex. Diagnosis / History: 1. 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 ER/AK positive. Dx in 1996. 2. Recurrence in 1998. 3. 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 ER/AK positive. Her-2/Richie positive. Dx in 2005 Stage T1. 4. 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 ER/AK positive. Treatment history: 1. AC x 3 [...] & Plan (12/29/2022 6:44 AM EDT): -Oncologist: [facility], last seen on 04/18/22 -Most recent imagin03/07/22 Diagnostic unilateral mammo, Right. BI-RADS 2. Annual mammo. -Continue Arimidex. Diagnosis / History: 1. 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 ER/AK positive. Dx in 1996. 2. Recurrence in 1998. 3. 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 ER/AK positive. Her-2/Richie positive. Dx in 2005 Stage T1. 4. 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 ER/AK positive. Treatment history: 1. AC x 3 [...] Encounters Date Type Department Care Team Description 12/16/2024 Refill [facility] [address] [place] [phone] Karina Rodarte MD Vertigo 12/03/2024 Refill [facility] [address] [place] [address] Karina Rodarte MD Other osteoporosis without current pathological fracture 10/27/2024 5:00 PM EDT Office Visit [facility] [address] [place] [address] Eder Goncalves MD Viral URI with cough (Primary Dx) 10/14/2024 Refill [facility] [address] [place] [address] Karina Rodarte MD Other osteoporosis without current pathological fracture 10/14/2024 Refill [facility] [address], [place] [phone] Karina Rodarte MD Allergic rhinitis, unspecified seasonality, unspecified trigger from Last 3 Months Immunizations Immunization Administration Dates Next Due Influenza injectable quadriv [...] your housing situation today? I have dacia sing 02/26/[address] you li [...] Sign Reading Time Taken Comments Blood Pressure 125/77 10/27/2024 5:03 PM EDT Pulse 76 10/27/2024 5:03 PM EDT Temperature 36.8 C (98.2 F) 10/27/2024 5:03 PM EDT Respiratory Rate 18 10/27/2024 5:03 PM EDT Oxygen Saturation 97% 10/27/2024 5:03 PM EDT Inhaled Oxygen Concentration - - Weight 73.5 kg (162 lb) 07/19/2024 4:09 PM EDT Height 154.5 cm (5' 0.83 ) 07/19/2024 4:09 PM ED T Body Mass Index 30.78 07/19/2024 4:09 PM EDT Plan of Treatment Health Maintenance Due Date Last Done Comments [...] 01/01/2022 SDOH Screening 09/18/2023 09/17/2022 Depression Monitoring 10/28/2023 04/28/2023, 023 COVID-19 Vaccine ( season) 2024 08/01/2021, 12/12/2020, 11/22/2020 Influenza Vaccine (#1) 2025 , 05/20/2022, 03/17/2020, Additional history exists Mammogram 05/25/2025 05/25/2024, 02/11, 03/07/2022, Additional history [...] patient's age to complete this topic Meningococcal B Vaccine Aged Out No l onger eligible based on patient's age to complete this topic Meningococcal Vaccine Aged Out No tony jennie eligible based on patient's age to complete this topic RSV under 20 months Aged Out No longe r eligible based on patient's age to complete this topic Rotavirus Vaccines Aged Out No longer eligible based on patient's age to complete this topic Procedures Procedure Name Priority Date/Time Associated Diagnosis Comments POCT INFLUENZA A (ID NOW RAPID MOLECULAR) Routine 10/27/2024 5:34 PM EDT Viral URI with cough POCT INFLUENZA B (ID NOW RAPID MOLECULAR) Routine 10/27/2024 5:34 PM EDT Viral URI with cough POCT COVID-19 AG GRIFFITH ID NOW Routine 10/27/2024 5:34 PM EDT Viral URI with cough HEMOGLOBIN A1C Routine 07/28/2024 2:00 PM EDT Impaired fasting glucose LIPID PANEL WITH REFLEX TO DIRECT LDL Routine 07/28/2024 2:00 PM EDT Primary hypertension BI MAMMOGRAM SCREENING TOMOSYNTHESIS RIGHT Routine 05/25/2024 2:10 PM EST HM PAP/HPV Routine 05/18/2021 ZZZ HISTORICAL HPV E6/E7 RFLX LILY 16 18/45 Routine 05/17/2021 2:23 PM EST HM COLONOSCOPY Routine 12/01/2020 from Last 3 Months or Most Recently Relevant to Health Maintenance Results * POCT Rapid Influenza B GRIFFITH ID NOW (10/27/2024 5:34 PM EDT) Influenza B Negative Negative, Indeterminate [facility] Swab 10/27/2024 5:34 PM EDT Eder Goncalves MD POINT OF CARE TEST ENTER/EDIT OR DERABLES Final Result Performing Organization Address [facility]/ZIP Co de Phone Number [facility] [address] [place] [phone] * POCT Rapid Influenza A GRIFFITH ID NOW (10/27/2024 5:34 PM EDT) Influenza A Negative Negative, Indeterminate [facility] Swab 10/27/2024 5:34 PM EDT Eder Goncalves MD POINT OF CARE TEST ENTER/EDIT OR DERABLES Final Result Performing Organization Address [facility] Co de Phone Number [facility] [address] [place] [phone] * POCT Rapid Covid-19 GRIFFITH ID NOW (10/27/2024 5:34 PM EDT) Pathologist [facility] Coronavirus Antigen PCR Negative Negative, Indeterminate, None Detected, Invalid, Specimen unsatisfactory for evaluation, Weakly Positive, 2+ [facility] Nares 10/27/2024 5:34 PM EDT Eder Goncalves MD POINT OF CARE TEST ENTER/EDIT OR DERABLES Final Result Performing Organization Address [facility] Co de Phone Number [facility] [address] [place] [phone] * (ABNORMAL) Lipid Panel with Reflex to Direct LDL (07/28/2024 2:00 PM EDT) Triglycerides 215(H) <150 mg/dL [facility] Comment:Desirable Triglyceri de: less than 150 mg/dLBorderline High Triglyceride 150-199 mg/dLHigh Triglyceride: 200-499 mg/dLVery High Triglyceride: greater than or equal to 5OO mg/dL Cholesterol 185 <200 mg/dL [facility] Comment:Desirable Cholestero l: less than 200 mg/dLBorderline High Cholesterol: 200-239 mg/dLHigh Cholesterol: greater than 239 mg/dL LDL Cholesterol Calculated 82 <100 mg/dL [facility] Comment:Desirable LDL: less than 100 mg/dLNear Optimal/Above Optimal LDL: 110- 129 mg/dLBorderline High LDL: 130-159 mg/dLHigh LDL: 160-189 mg/dLVery High LDL: greater than or equal to 190 mg/dL HDL Cholesterol 60 >40 mg/dL [facility] Comment:Desirable HDL: great er than 40 mg/dL Note: This HDL assay may give artificially low results in patients with liver disease. Blood 07/28/2024 2:00 PM EDT 07/28/2024 2:00 PM EDT Karina Rodarte MD LAB BLOOD ORDERABLES Final Resul t Performing Organization Address [facility] Co de Phone Number [facility] [address] [place] [address] [phone] * Hemoglobin A1c (07/28/2024 2:00 PM EDT) Hemoglobin A1c 5.8 <6.0 % [facility] Comment:Hemoglobin A1C Refer ence Range Adults: 4.8 - 6.0 % Non diabetic: < 6.0 % Goal: < 7.0 %Additional Action Suggested: > 8.0 %Note: Hemoglobin A1c results are invalid for patients with abnormal amounts of HbF. Blood transfusions may impact the HbA1c concentration in the patient sample. Estimated Average Glucose 120 mg/dL [facility] Comment:eAG = Estimated ave rage glucose which is %A1C expressed asaverage glucose, using the formula of the Q8R-IqrjxcsWqetnkh Glucose study (ADAG), Diabetes Care, Vol.31,#8,Dec. 2007 Blood Venous blood specimen / Unknown 07/28/2024 2:00 PM EDT 07/28/2024 2:00 PM EDT us Karina Rodarte MD LAB BLOOD ORDERABLES Final Resul t Performing Organization Address [facility]/ZIP Co de Phone Number [facility] [address] [place] [phone] * BI Mammogram Screening Tomosynthesis Right (05/25/2024 2:10 PM EST) Anatomical Region Laterality Modality Breast Right Mammography 05/25/2024 2:10 PM EST Narrative 06/05/2024 11:25 AM EST [facility] [address] [place] [address] Mammography Report Signed Patient: Liz Perdomo MR#: [id number] [id number] : 1960 Acct:[id number] Age/Sex: 64 / F ADM Date: 05/25/24 Loc: HO.MAMMO Attending Dr: Karina Rodarte MD Ordering Physician: Karina Rodarte MD Results: 2Benign F indings Date of Service: 05/25/24 Follow Up: 1 Year From Orig ina Mammogram Procedure(s): MM tomosynthesis screening RT Accession Number(s): [id number] cc: Karina Rodarte MD EXAMINATION: MM SCREENING [...] 06/05/24 1122 DD/ 1410 TD/TT: 05/25/24 1442 Jewelry Model Maker: Procedure Note Donotuseinterpreter, Image - 06/05/2024 [facility] [address] [place] [address] Mammography Report Signed Patient: Geni Perdomo#: [id number] : 8Acct:[id number] Age/Sex: 64 / FADM Date: 05/25/24 Loc: HO.MAMMO Attending Dr: Karina Rodarte MD Ordering Physician: Karina Rodarte MDResults: 2Benign F indings Date of Service: 05/25/24Follow Up: 1 Year From Orig ina Mammogram Procedure(s): MM tomosynthesis screening RT Accession Number(s): [id number] cc: Karina Rodarte MD EXAMINATION: MM SCREENING [...] by: Yessenia Mendez DO 06/05/2024 11:22 AM [facility] [place] Dictated By: Yessenia Mendez DO Signed By: <Electronically signed by Yessenia Mendez DO in OV> 06/05/24 1122 DD/ 1410 TD/TT: 05/25/24 1442 Jewelry Model Maker: Karina Rodarte MD IMG BI PROCEDURES Final Result * Pap Smear [...] mRNA E6/E7 rflx Not Detected Not Detected [facility] Comment: Methodology: [employer] Bi Administrator-Mediated Amplification This assay detects E6/E7 viral messenger RNA (mRNA) from 14 high-risk HPV types (16,18,31,33,35,39,45,51,52,56,58,59,66,68). The analytical performance characteristics of this assay have been determined by [employer]. The modifications have not been cleared or approved by the FDA. This assay has been validated pursuant to the CLIA regulations and is used for clinical purposes. For additional information, please refer to http://education.Canvas/faq/CEY016x1 (This link if provided for information/ educational purposes only.) THIS TEST WAS PERFORMED AT: [employer] [address] [place] [address] [address],[place] [address] JARED SANTANA MD 05/17/2021 2:23 PM EST Juan Miller MD HISTORICAL/NON ORDERABLE LABS Fi nal Result [facility] [address] * Colonoscopy (12/01/2020) Colonoscopy hyperplastic polyp us Historical Provider HEALTH MAINTENANCE Edited Result - Final from Last 3 Months or Most Recently Relevant to Health Maintenance Insurance [facility] STANDARD MEDICARE Care Teams Pick Pulling Machine Operator Relationship Specialty Start Date End Date Karina Rodarte MD [address] [place] [address] PCP - General Family Medicine 05/12/18
--- OUTSIDE RECORDS SUMMARY | 2025-01-12 15:55 | XMS_ITS | Encounter Summary ---
Author Organization [employer] Address [address] [facility] 7t [place] [address] Care Team Providers Care Chip Tester Name Role Phone Karina Rodarte MD Primary Care Provider [phone] Reason for Visit * Reason Comments Med Refill Encounter Details Date Type Department Care Team ([facility] st Contact Info) Description 02/23/2024 Refill [facility] [address] [place], [place] [phone] Karina Rodarte MD [address] [place] [address] Heartburn Social History Tobacco Use Types Packs/Day [...] documented as of this encounter Care Teams Chip Tester Relationship Specialty Start Date End Date Karina Rodarte MD [address] [place] [address] PCP - General Family Medicine 05/12/18 documented as of this encounter
--- OUTSIDE RECORDS SUMMARY | 2025-01-12 15:55 | XMS_ITS | Encounter Summary ---
Author Organization [employer] Address [address] [place] [address] 7t [place] [address] Care Team Providers Care Airline Pilot Flight Instructor Name Role Phone Karina Rodarte MD Primary Care Provider [phone] Encounter Details Date Type Department Care Team (Late st Contact Info) Description 05/24/2022 Abstract [facility] [address] [place] [address] Karina Rodarte MD [address] [place] [address] Social History Tobacco Use Types Packs/Day Years [...] on file documented as of this encounter Procedures Procedure Name Priority Date/Time Associated Diagnosis Comments MAMMOGRAPHY Routine 03/07/2022 PAP/HPV Routine 05/18/2021 COLONOSCOPY Routine 12/01/2020 documented in this encounter Results * Mammography (03/07/2022) Mammogram BI-RADS 2 Comment:Right side only. Hx left mastectomy Anatomical Region Laterality Modality Other Historical Provider MD HEALTH MAINTENANCE Final Result * Pap Smear (05/18/2021) Pap smear NILM negative high-risk HPV [facility] Provider HEALTH MAINTENANCE Final Result * Colonoscopy (12/01/2020) Colonoscopy hyperplastic polyp [facility] Provider HEALTH MAINTENANCE Edited Result - Final documented in this encounter Visit Diagnoses Not on filedocumented in this encounter Care Teams Airline Pilot Flight Instructor Relationship Specialty Start Date End Date Karina Rodarte MD [address] [place] [phone] PCP - General Family Medicine 05/12/18 documented as of this encounter
== END 2025-01-12 14:29 | disposition home or self-care (01) ==
LOC: HO.ENCR 13:45
PROVIDERS: PCP Family Medicine; Visit Provider Internal Medicine Endocrinology, Diabetes & Metabolism
DX: M81.0 Age-related osteoporosis without current pathological fracture (principal)
CPT/HCPCS: 99213

== ENCOUNTER → 2025-01-12 13:45 | Outpatient (BNVA) | payer MEDICARE, MEDICAID, SELFPAY | PROVIDERS: PCP Family Medicine; Visit Provider Internal Medicine Endocrinology, Diabetes & Metabolism | DX: M81.0 Age-related osteoporosis without current pathological fracture (principal) | CPT/HCPCS: 99212 ==

== ENCOUNTER 2025-03-23 15:31 | Outpatient (REF) | payer MEDICARE, MEDICAID, SELFPAY ==
--- OUTSIDE RECORDS SUMMARY | 2025-03-23 18:40 | XMS_ITS | Patient Health Record ---
Author Organization [facility] Address [address] [place] [phone] Care Team Providers Care Milieu Technician Name Role Phone Aster GOMEZ, Karina Primary Care Provider Unavailabl e [place] Sampson Jr Unavailable Melody Pham Unavailable Unavailable Reason For Referral No Information Medications Medication SIG (Take, Route, Frequency, Duration) Notes Start Date End Date Status clonazePAM 1 MG TOME ANETA TABLETA DOS VECES AL D A CUANDO SEA NECESARIO Oral; Duration: 30 Active Loratadine 10 MG TOME ANETA TABLETA TOD OS LOS D Oral; Duration: 90 Active ProAir HFA 108 (90 Base) MCG/ACT TOME DOS INHALACIONES POR V A ORAL CADA CUATRO A SEIS HORAS CUANDO SEA NECESARIO Inhalation; Duration: 16 Active traZODone HCl 50 MG TAKE 1/2 1 TABLETA P OR V A ORAL TODOS LOS D AL ACOSTARSE CUANDO SEA NECESARIO PARA DORMIR Oral; Duration: 30 Active Simvastatin 20 MG TOME ANETA TABLETA TOD OS LOS D EN LA NOCHE Oral; Duration: 30 Active Lisinopril 10 MG TOME ANETA TABLETA TOD OS LOS D Oral; Duration: 30 Active Alendronate Sodium 70 MG TAKE 1 TABLET E VERY WEEK IN THE AM AT LEAST 30 MIN BEFORE FIRST FOOD, BEVERAGE, OR MEDICATION OF DAY Oral; Duration: 28 Active Fluticasone Propionate 50 MCG/ACT SPRAY 1 SPRAY INTO EACH NOSTRIL TODOS LOS D Nasal; Duration: 60 Active Montelukast Sodium 10 MG TOME ANETA TABLET A TODOS LOS D EN LA NOCHE Oral; Duration: 30 Active Anastrozole 1 MG TOME ANETA TABLETA TOD OS LOS D Oral; Duration: 90 Active Cromolyn Sodium 4 % PONGA ANETA GOTA EN OJ O AFECTADO CUATRO VECES AL D A Ophthalmic; Duration: 25 Activ e Latanoprost 0.005 % INSTILL 1 DROP IN AF FECTED EYE(S) CADA NOCHE Ophthalmic; Duration: 90 Active Sertraline HCl 100 MG TOME DOS TABLETAS POR V A ORAL TODOS LOS D Oral; Duration: 30 Active Immunizations Vaccine Route Administration Date [...] Problem Status W/U Status Risk Notes Problem Colon cancer screening (677940164) Colon cancer screening (Z12.11) Active confirmed Plan Of Treatment Future Test Test Name Order Date COLONOSCOPY 11/10/2020 Insurance Providers Payer Name Payer Address Payer Phone Subscriber Number Group Number Insured Name Patient Relationship to Insured Coverage Start Date Coverage End Date [facility] [address] [place] [phone] [id number] RIMA COLLIER Self - patient is the insured Medical (General) History Medical History History ICD Code Anxiety/depression hypertension GERD breast cancer 1996,1998, 2015 /3 times Elevated cholesterol Allergic rhinitis Surgical History Surgery Date(Month/Year) mastectomy lumpectomy
--- OUTSIDE RECORDS SUMMARY | 2025-03-23 18:40 | XMS_ITS | Encounter Summary ---
Author Organization [employer] Address [address] [facility] 7t [place] [address] Care Team Providers Care Tax Services Professional Name Role Phone Karina Rodarte MD Primary Care Provider [phone] Reason for Visit * Reason Comments Med Refill Encounter Details Date Type Department Care Team ([facility] st Contact Info) Description 10/14/2024 Refill [facility] [address] [place], [place] [phone] Karina Rodarte MD [address] [place], [place] [phone] Other osteoporosis without current pathological fracture Social [...] documented as of this encounter Care Teams Tax Services Professional Relationship Specialty Start Date End Date Karina Rodarte MD [address] [place] [phone] PCP - General Family Medicine 05/12/18 documented as of this encounter
--- OUTSIDE RECORDS SUMMARY | 2025-03-23 18:40 | XMS_ITS | Encounter Summary ---
Author Organization [employer] Address [address] [facility] 7t [place] [address] Care Team Providers Care Freight And Passenger Agent Name Role Phone Karina Rodarte MD Primary Care Provider [phone] Reason for Visit * Reason Comments Med Refill Encounter Details Date Type Department Care Team ([facility] st Contact Info) Description 02/23/2024 Refill [facility] [address] [place], [place] [phone] Karina Rodarte MD [address] [place] [address] Heartburn Social History Tobacco Use Types Packs/Day [...] documented as of this encounter Care Teams Freight And Passenger Agent Relationship Specialty Start Date End Date Karina Rodarte MD [address] [place] [address] PCP - General Family Medicine 05/12/18 documented as of this encounter
--- OUTSIDE RECORDS SUMMARY | 2025-03-23 18:40 | XMS_ITS | Encounter Summary ---
Author Organization [employer] Address [address] [place] [address] 7t [place] [address] Care Team Providers Care Yard Labor Supervisor Name Role Phone Karina Rodarte MD Primary Care Provider [phone] Encounter Details Date Type Department Care Team (Late st Contact Info) Description 05/24/2022 Abstract [facility] [address] [place] [address] Karina Rodarte MD [address] [place] [address] Social History Tobacco Use Types Packs/Day Years [...] (05/18/2021) Pap smear NILM negative high-risk HPV [facility] Provider HEALTH MAINTENANCE Final Result * Colonoscopy (12/01/2020) Colonoscopy hyperplastic polyp [facility] Provider HEALTH MAINTENANCE Edited Result - Final documented in this encounter Visit Diagnoses Not on filedocumented in this encounter Care Teams Yard Labor Supervisor Relationship Specialty Start Date End Date Karina Rodarte MD [address] [place] [phone] PCP - General Family Medicine 05/12/18 documented as of this encounter
--- OUTSIDE RECORDS SUMMARY | 2025-03-23 18:40 | XMS_ITS | Encounter Summary ---
Author Organization [employer] Address [address] [place] [address] 7t [place] [address] Care Team Providers Care Financing Analyst Name Role Phone Karina Rodarte MD Primary Care Provider [phone] Reason for Visit * Reason Onset Date Comments requesting a call back 05/23/2022 Encounter Details Date Type Department Care Team ([facility] st Contact Info) Description 05/23/2022 Telephone [facility] [address] [place] [address] [phone] Karina Rodarte MD [address] [place] [address] requesting a call back Social History Tobacco [...] a call back Please contact pt at [phone] documented in this encounter Plan of Treatment Not on file documented as of this encounter Visit Diagnoses Not on filedocumented in this encounter Care Teams Financing Analyst Relationship Specialty Start Date End Date Karina Rodarte MD [address] [place] [address] PCP - General Family Medicine 05/12/18 documented as of this encounter
--- OUTSIDE RECORDS SUMMARY | 2025-03-23 18:40 | XMS_ITS | Encounter Summary ---
Author Organization [employer] Address [address] [facility] 7t [place] [address] Care Team Providers Care Deputy Director Name Role Phone Karina Rodarte MD Primary Care Provider Reason for Referral * Consultation (Routine) - Closed Specialty Diagnoses / Procedures Referred By Contac t Referred To Contact Endocrinology Diagnoses Osteoporosis without current pathological fracture, unspecified osteoporosis type Karina Rodarte MD [address] [place] [address] Phone: tel: fax: [facility] Endocr[facility]ology [address] [place], [place] Phone: tel: fax: Referral ID Status Reason Start Date Expiration Date V isits Requested Visits Authorized [id number] Closed Specialty Services Required 09/07/2023 09/06/2024 1 1 Encounter Details Date Type Department Care Team (Late st Contact Info) Description 09/07/2023 Orders Only [facility] [address] [place] [address] [phone] Karina Rodarte MD [address] [place] [address] [phone] Osteoporosis without current pathological fracture, unspecified osteoporosis [...] documented as of this encounter Care Teams Deputy Director Relationship Specialty Start Date End Date Karina Rodarte MD [address] [place] [address] PCP - General Family Medicine 05/12/18 documented as of this encounter
--- OUTSIDE RECORDS SUMMARY | 2025-03-23 18:40 | XMS_ITS | Encounter Summary ---
Author Organization [employer] Address [address] [place] [address] 7t [place] [address] Care Team Providers Care Fish Machine Feeder Name Role Phone Karina Rodarte MD Primary Care Provider [phone] Encounter Details Date Type Department Care Team (Latest Contact Info) Description 10/24/2021 Abstract [facility] Dental, Provider, DDS Social History Tobacco [...] on filedocumented in this encounter Care Teams Fish Machine Feeder Relationship Specialty Start Date End Date Karina Rodarte MD [address] [place] [phone] PCP - General Family Medicine 05/12/18 documented as of this encounter
--- OUTSIDE RECORDS SUMMARY | 2025-03-23 18:40 | XMS_ITS | Encounter Summary ---
Author Organization [employer] Address [address] [place] [address] 7t [place] [address] Care Team Providers Care Fire Fighter Airport Name Role Phone Karina Rodarte MD Primary Care Provider [phone] Encounter Details Date Type Department Care Team (Latest Contact Info) Description 06/29/2019 Abstract [facility] Dental, Provider, DDS Social History Tobacco [...] on filedocumented in this encounter Care Teams Fire Fighter Airport Relationship Specialty Start Date End Date Karina Rodarte MD [address] [place] [phone] PCP - General Family Medicine 05/12/18 documented as of this encounter
--- OUTSIDE RECORDS SUMMARY | 2025-03-23 18:40 | XMS_ITS | Clinical Summary ---
Author Organization [employer] Address [address] [place] [address] 7t [place] [address] Care Team Providers Care Metal Cut Off Saw Tender Name Role Phone Karina Rodarte MD Primary Care Provider [phone] Allergies Active Allergy Reactions Criticality Noted Date Comments Chlorthalidone 09/03/2012 Other reaction(s): chest tight,leg spasm,constipati Omeprazole 12/02/2011 Medications cromolyn (Opticrom) 4 % ophthalmic solution Administer 1 drop into both eyes 4 times daily. Affected eyes 2 Active latanoprost (Xalatan) 0.005 % ophthalmic solution [...] drop into both eyes 3 times daily. 2 Active pantoprazole (Protonix) 40 MG EC tablet Take 1 tablet (40 mg) by mouth before breakfast. Do not crush, chew, or split. 30 tablet 11 3 Active hydrOXYzine pamoate (Vistaril) 25 MG capsule TOME 1 CAPSULA POR VIA ORAL CADA DOCE HORAS CUANDO SEA NECESARIO PARA LA ANSIEDAD 60 capsule 3 3 Active triamcinolone (Kenalog) 0.1 % cream Apply topically if needed in the morning and at bedtime (pain and swelling). 30 g 4 Active rosuvastatin (Crestor) 5 MG tablet Take 1 tablet (5 mg) by mouth Once per day. 30 tablet 11 4 Active hydrocortisone 2.5 % cream Apply pea sized amount to skin bid for 1 week 28.35 g 4 Active albuterol (Ventolin HFA) 108 (90 Base) MCG/ACT inhalerIndication s:Mild intermittent asthma without complication INHALE 2 PUFFS BY INHALATION EVERY 4-6 HOURS NEEDED 18 g 1 5 Active ferrous sulfate 325 (65 Fe) MG tablet TAKE 1 TABLET BY MOUTH EVERY DAY 90 tablet 1 5 Active amLODIPine-olmesa rtan (Stew) 5-20 MG tablet Take 1 tablet by mouth Once per day. 90 tablet 3 5 Active montelukast (Singulair) 10 MG tablet TOME ANETA TABLETA [facility] tablet 3 5 Active rosuvastatin (Crestor) 10 MG tablet Take 1 tablet (10 mg) by mouth at bedtime. 30 tablet 11 5 07/30/19 26 Active fluticasone (Flonase) 50 MCG/ACT nasal sprayIndications: Allergic rhinitis, unspecified seasonality, unspecified trigger SPRAY 1 SPRAY INTO EACH NOSTRIL EVERY DAY 48 mL 5 Active alendronate (Fosamax) 70 MG tabletIndications :Other osteoporosis without current pathological fracture TAKE 1 TAB BY MOUTH EVERY 7 DAYS TAKE IN THE MORNING WITH A FULL GLASS OF WATER, ON AN EMPTY STOMACH, AND DO NOT TAKE ANYTHING ELSE BY MOUTH OR LIE DOWN FOR THE NEXT 30 MIN. 12 tablet 5 Active loratadine (Claritin) 10 MG tablet TAKE 1 TABLET BY MOUTH EVERY DAY 90 tablet 5 Active famotidine (Pepcid) 20 MG tabletIndications :Heartburn TAKE 1 TABLET BY MOUTH TWICE DAILY IN THE MORNING AND AT BEDTIME NEEDED 180 tablet 5 Active meclizine (Antivert) 25 MG tabletIndications :Vertigo TAKE 1 TABLET BY MOUTH THREE TIMES A DAY IF NEEDED FOR VERTIGO 30 tablet 5 Active Active Problems Problem Noted Date Diagnosed Date [...] and -2.1 in hip - Seen by orientor on 04/21/24. Ordered secondary work-up. Continue calcium and vitamin D supplementation. Drug holiday at this time. - Continue weight bearing exercise - Upcoming appointment with orientor this month Assessment & Plan (09/07/2023 4:45 PM EDT): - DEXA in Feb 2016 showed osteopenia - Completed 5 year of alednronate treatment course in Apr 2021. - Most recent DEXA on 03/11/23 showed worsening bone density, -2.5 in lumbar spine and -2.1 in hip - Will refer to orientor for another recommendation Assessment & Plan (04/28/2023 [...] - Likely re-start bisphosphonate or refer to orientor - order DEXA Assessment & Plan (05/24/2022 10:06 AM EST): - DEXA in Feb 2016 showed osteopenia - Started Fosamax 70 mg weekly since Apr 2016. - Recently completed 5 year treatment course in Apr 2021. - Likely re-start bisphosphonate or refer to orientor - Her oncologist recently ordered DEXA - [...] with negative high-risk HPV - PAP by [facility] TICK ERADICATOR, Dr. Miller, on 05/18/21 NILM with negative high-risk HPV --EMBx for PMB on 07/23/21 normal Mixed anxiety and depressive disorder 03/14/2015 Assessment & Plan (07/20/2024 2:26 AM EDT): - continue current treatment with [facility] - continue sertraline and hydroxyzine - treatment history: Clonazepam was discontinued due to dizziness Assessment & Plan (09/07/2023 4:46 PM EDT): - continue current treatment with [facility] - continue sertraline and hydroxyzine - treatment history: Clonazepam was discontinued due to dizziness Assessment & Plan (05/04/2023 10:26 AM EST): - continue current treatment with [facility] - continue sertraline and hydroxyzine - treatment history: Clonazepam was discontinued due to dizziness Assessment & Plan (12/29/2022 6:44 AM EDT): - continue current treatment with [facility] - continue sertraline and hydroxyzine - pt is no longer taking clonazepam Assessment & Plan (05/20/2022 6:00 AM EST): -Oncologist: [facility], last seen on 04/18/22 -Most recent imagin03/07/22 Diagnostic unilateral mammo, Right. BI-RADS 2. Annual mammo. -Continue Arimidex. Diagnosis / History: 1. 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 Dx in 1996. 2. Recurrence in 1998. 3. 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 ER/NM positive. Her-2/Richie positive. Dx in 2005 Stage T1. 4. 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 ER/NM positive. Treatment history: 1. AC x 3 [...] treatment plan by Dr. Pham Breast cancer ([facility]) 12/06/2014 Assessment & Plan (07/24/2024 6:58 AM EDT): -Oncologist: [facility], last seen in May 2024 -Most recent imaging: Mammo on 03/11/23 BI-RADS 2 -Continue Arimidex. Diagnosis / History: 1. 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 Dx in 1996. 2. Recurrence in 1998. 3. 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 ER/NM positive. Her-2/Richie positive. Dx in 2005 Stage T1. 4. 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 ER/NM positive. Treatment history: 1. AC x 3 [...] & Plan (09/07/2023 4:48 PM EDT): -Oncologist: [facility], last seen in May 2023 -Most recent imaging: Mammo on 03/11/23 BI-RADS 2 -Continue Arimidex. Diagnosis / History: 1. 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 Dx in 1996. 2. Recurrence in 1998. 3. 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 ER/NM positive. Her-2/Richie positive. Dx in 2005 Stage T1. 4. 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 ER/NM positive. Treatment history: 1. AC x 3 [...] & Plan (04/28/2023 5:46 AM EST): -Oncologist: [facility], last seen on 04/18/22 -Most recent imagin03/07/22 Diagnostic unilateral mammo, Right. BI-RADS 2. Annual mammo. -Continue Arimidex. Diagnosis / History: 1. 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 Dx in 1996. 2. Recurrence in 1998. 3. 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 ER/NM positive. Her-2/Richie positive. Dx in 2005 Stage T1. 4. 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 ER/NM positive. Treatment history: 1. AC x 3 [...] & Plan (12/29/2022 6:44 AM EDT): -Oncologist: [facility], last seen on 04/18/22 -Most recent imagin03/07/22 Diagnostic unilateral mammo, Right. BI-RADS 2. Annual mammo. -Continue Arimidex. Diagnosis / History: 1. 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 Dx in 1996. 2. Recurrence in 1998. 3. 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 ER/NM positive. Her-2/Richie positive. Dx in 2005 Stage T1. 4. 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 ER/NM positive. Treatment history: 1. AC x 3 [...] Encounters Date Type Department Care Team Description 03/14/2025 Telephone [facility] [address] [place] [address] Sweta Gaona [place] 03/08/2025 Patient Outreach [facility] [address] [place] [phone] Karina Rodarte MD Pre-visit Planning (SDOH screening negative and Tobacco screening negative) 02/24/2025 3:40 PM EDT Office Visit [facility] [address] [place], [place] [phone] Gloria Nunez MD Allergic conjunctivitis and rhinitis, unspecified laterality (Primary Dx) 02/24/2025 Travel 02/18/2025 Refill [facility] [address] [place] [address] Ozzy Washington MD Vertigo 02/18/2025 Refill [facility] [address] [place], [place] [phone] Karina Rodarte MD Heartburn; Vertigo from Last 3 Months Immunizations Immunization Administration [...] housing situation today? I have daciarebekah toth 03/08/[address] you li ve. Do you have problems with any of the following? None of the above 03/08/2025 Food Insecurity Answer Date Recorded Within the past 12 months, y ou worried that your food would run out before you got money to buy more: Never True 03/08/2025 Within the past 12 months,th e food you bought just didn't last and you didn't have enough money to get more: Never True Transportation Answer Date Recorded In the past 12 months, has l ack of transportation kept you from medical appts, meetings, work or from getting things needed for daily living? No 03/08/2025 Utilities Answer Date Recorded In the past 12 months, has t he electric, gas, oil or water company threatened to shut off services in your home? No 03/08/2025 Depression Answer Date Recorded Patient Health Questionnaire-2 Score 2 04/28/2023 Internet Access Answer Date Recorded Internet Access Q1 Yes 03/08/2025 Internet Access Q2 Not on file 03/08/2025 Comments Unknown Sex and Gender Information Value Date Recorded Sex Assigned at Female 03/11/2022 10:14 AM EDT Legal Sex Female 10:14 AM EDT Gender Identity Female 03/11/2022 10:14 AM EDT Sexual Orientation Straight 03/11/2022 10 :14 AM EDT Last Filed Vital Signs Vital Sign Reading Time Taken Comments Blood Pressure 156/71 02/24/2025 3:10 PM EDT Pulse 92 02/24/2025 3:10 PM EDT Temperature 36.6 C (97.9 F) 02/24/2025 3:10 PM EDT Respiratory Rate 19 02/24/2025 3:10 PM EDT Oxygen Saturation 99% 02/24/2025 3:10 PM EDT Inhaled Oxygen Concentration - - Weight 72.7 kg (160 lb 4 oz) 02/24/2025 3:10 PM EDT Height 152.4 cm (5') 02/24/2025 3:10 PM EDT Body Mass Index 31.3 02/24/2025 3:10 PM EDT Plan of Treatment Health Maintenance Due Date Last Done Comments CT Colonography 1960 FIT DNA/Cologuard 1960 FIT 1960 FOBT 1960 Sigmoidoscopy 1960 Alcohol/Substance Use Screening 1970 Hepatitis C Screening 02/02/1976 RSV Patients and Patients Aged 60 years or older (1 - Risk 50-74 years 1-dose series) 02/02/2008 Pneumococcal Vaccine: 50+ Years (2 of 2 - PCV) 02/26/2011 02/26/2010 Zoster Vaccines (2 of 2) 02/26/2022 01/01/2022 Depression Monitoring 10/28/2023 04/28/2023, 023 COVID-19 Vaccine (4 - season) 2025 08/01/2021, 12/12/2020, 11/22/2020 Influenza Vaccine (#1) 2025 , 05/20/2022, 03/17/2020, Additional history exists Mammogram 05/25/2025 05/25/2024, 02/11, 03/07/2022, Additional history exists Diabetes: Hemoglobin A1C 07/28/2025 025, 05/06/2023, 05/21/2022, Additional history exists Tobacco Screening 02/24/2026 02/24/2025 SDOH Screening 03/08/2026 03/08/2025 Lipid Panel 07/28/2029 07/28/2024, 04/12, 05/21/2022, Additional [...] Procedure Name Priority Date/Time Associated Diagnosis Comments HEMOGLOBIN A1C Routine 07/28/2024 2:00 PM EDT [...] 2:00 PM EDT) Triglycerides 215(H) <150 mg/dL [facility] Comment:Desirable Triglyceri de: less than 150 mg/dLBorderline High Triglyceride 150-199 mg/dLHigh Triglyceride: 200-499 mg/dLVery High Triglyceride: greater than or equal to 5OO mg/dL Cholesterol 185 <200 mg/dL [facility] Comment:Desirable Cholestero l: less than 200 mg/dLBorderline High Cholesterol: 200-239 mg/dLHigh Cholesterol: greater than 239 mg/dL LDL Cholesterol Calculated 82 <100 mg/dL [facility] Comment:Desirable LDL: less than 100 mg/dLNear Optimal/Above Optimal LDL: 110- 129 mg/dLBorderline High LDL: 130-159 mg/dLHigh LDL: 160-189 mg/dLVery High LDL: greater than or equal to 190 mg/dL HDL Cholesterol 60 >40 mg/dL [facility] Comment:Desirable HDL: great er than 40 mg/dL Note: This HDL assay may give artificially low results in patients with liver disease. Blood 07/28/2024 2:00 PM EDT 07/28/2024 2:00 PM EDT Karina Rodarte MD LAB BLOOD ORDERABLES Final Resul t Performing Organization Address [facility] de Phone Number [facility] [address] [place] [phone] * Hemoglobin A1c (07/28/2024 2:00 PM EDT) Hemoglobin A1c 5.8 <6.0 % [facility] Comment:Hemoglobin A1C Refer ence Range Adults: 4.8 - 6.0 % Non diabetic: < 6.0 % Goal: < 7.0 %Additional Action Suggested: > 8.0 %Note: Hemoglobin A1c results are invalid for patients with abnormal amounts of HbF. Blood transfusions may impact the HbA1c concentration in the patient sample. Estimated Average Glucose 120 mg/dL [facility] Comment:eAG = Estimated ave rage glucose which is %A1C expressed asaverage glucose, using the formula of the A8O-PnjbdptAzrtvpp Glucose study (ADAG), Diabetes Care, Vol.31,#8,Dec. 2007 Blood Venous blood specimen / Unknown 07/28/2024 2:00 PM EDT 07/28/2024 2:00 PM EDT Karina Rodarte MD LAB BLOOD ORDERABLES Final Resul t Performing Organization Address [facility] Co de Phone Number [facility] [address] [place] [phone] * BI Mammogram Screening Tomosynthesis Right (05/25/2024 2:10 PM EST) Anatomical Region Laterality Modality Breast Right Mammography 05/25/2024 2:10 PM EST Narrative 06/05/2024 11:25 AM EST [address] [place] [address] Mammography Report Signed Patient: Liz Perdomo MR#: [id number] : 1960 Acct:[id number] Age/Sex: 64 / F ADM Date: 05/25/24 Loc: HO.MAMMO Attending Dr: Karina Rodarte MD Ordering Physician: Karina Rodarte MD Results: 2Benign F indings Date of Service: 05/25/24 Follow Up: 1 Year From [facility] ina Mammogram Procedure(s): MM tomosynthesis screening RT Accession Number(s): [id number] cc: Karina Rodarte MD EXAMINATION: MM SCREENING [...] 06/05/24 1122 DD/ 1410 TD/TT: 05/25/24 1442 Migration Specialist: Procedure Note Donotuseinterpreter, Image - 06/05/2024 [facility] [address] [place], [place] [address] Mammography Report Signed Patient: Geni Perdomo#: [id number] : 8Acct:[id number] Age/Sex: 64 / FADM Date: 05/25/24 Loc: HO.MAMMO Attending Dr: Karina Rodarte MD Ordering Physician: Karina Rodarte MDResults: 2Benign F indings Date of Service: 05/25/24Follow Up: 1 Year From Orig ina Mammogram Procedure(s): MM tomosynthesis screening RT Accession Number(s): [id number] cc: Karina Rodarte MD EXAMINATION: MM SCREENING [...] 06/05/24 1122 DD/ 1410 TD/TT: 05/25/24 1442 Migration Specialist: Karina Rodarte MD IMG BI PROCEDURES Final Result * Hm Pap Smear (05/18/2021) HM Pap smear NILM negative high-risk HPV Historical Provider HEALTH MAINTENANCE Final Result * HPV E6/E7 RFLX LILY 16 18/45 (05/17/2021 2:23 PM EST) HPV 16 RNA [facility] HPV 18/45 RNA [facility] HPV E6 E7 ADD [facility] HPV mRNA E6/E7 rflx Not Detected Not Detected [facility] Comment: Methodology: Pit Crew Support Worker-Mediated Amplification This assay detects E6/E7 viral messenger RNA (mRNA) from 14 high-risk HPV types (16,18,31,33,35,39,45,51,52,56,58,59,66,68). The analytical performance characteristics of this assay have been determined by [employer]. The modifications have not been cleared or approved by the FDA. This assay has been validated pursuant to the CLIA regulations and is used for clinical purposes. For additional information, please refer to http://education.[employer]/faq/XEG781s1 (This link if provided for information/ educational purposes only.) THIS TEST WAS PERFORMED AT: [facility] [address] [place] [address],[place] [address] JARED SANTANA MD 05/17/2021 2:23 PM EST Juan Miller MD HISTORICAL/NON ORDERABLE LABS Fi nal Result [facility] [address] * Colonoscopy (12/01/2020) Pathologist [facility] Colonoscopy hyperplastic polyp Andrae Lucas MD HEALTH MAINTENANCE Edited Result - Final from Last 3 Months or Most Recently Relevant to Health Maintenance [place] [address] [place] [address] STANDARD [facility] DUAL COMPLETE HMO Care Teams Metal Cut Off Saw Tender Relationship Specialty Start Date End Date Karina Rodarte MD [address] [place] [phone] PCP - General Family Medicine 05/12/18
--- OUTSIDE RECORDS SUMMARY | 2025-03-23 18:40 | XMS_ITS | Encounter Summary ---
Author Organization [employer] Address [address] [place] [address] 7t [place] [address] Care Team Providers Care Castables Worker Name Role Phone Karina Rodarte MD Primary Care Provider [phone] Encounter Details Date Type Department Care Team (Late st Contact Info) Description 10/24/2022 Orders Only [facility] [address] [place], [place] [phone] Karina Rodarte MD [address] [place], [place] [phone] Sleep disturbance (Primary Dx) Social History Tobacco [...] documented as of this encounter Care Teams Castables Worker Relationship Specialty Start Date End Date Karina Rodarte MD [address] [place] [phone] PCP - General Family Medicine 1/1/19 documented as of this encounter
== END 2025-03-23 15:32 | disposition home or self-care (01) ==
LOC: HO.HHCL 15:31
PROVIDERS: PCP Family Medicine; Visit Provider Internal Medicine Endocrinology, Diabetes & Metabolism
DX: Z13.89 Encounter for screening for other disorder (principal)